=== PATIENT | female | born 1975 | race Caucasian/White ===

== ENCOUNTER 2022-08-11 15:40 | Emergency (ER) | payer BC, SELFPAY ==
[2022-08-11] VITALS (8 sets, daily range): BP systolic 93–130; BP diastolic 56–70; PULSE 57–78; RESP 16–100; TEMP 36.4; O2SAT 100
--- NOTE | ~2022-08-11 | CT_ITS ---
EXAMINATION: CT brain wo con DATE: 08/11/2022 16:49 INDICATION: Headache TECHNIQUE: Computed tomography (CT) of the head was performed without intravenous contrast. Sagittal and coronal reconstructions were performed. The mA was adjusted according to patient size. Iterative reconstruction technique was employed. The dose-length product was 605.33 mGy-cm. COMPARISON: None FINDINGS: No acute intracranial hemorrhage, acute infarction or abnormal extra axial fluid collection. Ventricl es are normal and symmetric. No mass/mass effect. Mucosal thickening in the right sphenoid and pastry mixer ior left ethmoid sinus with additional posterior layering fluid in the right sphenoid sinus suggestin g acute sinusitis. The orbits and mastoid air cells are normal. IMPRESSION: 1. Normal brain. No acute intracranial process. 2. Mucosal thickening and layering fluid in the right sphenoid sinus. Correlate clinically for acute sinusitis. Reviewed, dictated and finalized at location A.
--- NOTE | 2022-08-11 16:00 | ED.GENADULT ---
HPI - General Adult General Chief complaint: Headache Stated complaint: headache Time Seen by Provider: 08/11/22 15:57 History of Present Illness HPI narrative: 47-year-old female presents for evaluation of headache x3 days. Patient states that 3 days ago she woke up with a headache. Headache is described as constant and throbbing and all over her head. No meningismus, focal symptoms, fever, trauma. Related Data Allergies Allergy/AdvReac Type Severity Reaction Status Date / Time tetracycline Allergy Severe VOMITING Verified 08/11/22 16:01 hydrocodone Allergy Unknown NAUSEA Verified 08/11/22 16:01 Sulfa (Sulfonamide Allergy Unknown Unknown Verified 08/11/22 16:01 Antibiotics) clindamycin Allergy Confusion Verified 08/11/22 16:01 doxycycline AdvReac Unknown VOMITING Verified 08/11/22 16:01 Review of Systems Review of Systems: CONSTITUTIONAL: Denies fever, chills, or sweats. EYES: Denies visual changes, redness, or discharge. ENT: Denies rhinorrhea, congestion, sore throat, or otalgia. CARDIOVASCULAR: Denies chest pain, palpitations, or edema. RESPIRATORY: Denies cough or dyspnea. GASTROINTESTINAL: Denies abdominal pain, nausea, vomiting, or diarrhea. GENITOURINARY: Denies dysuria or hematuria. SKIN: Denies rash or itching. MUSCULOSKELETAL: Denies back pain, joint pain, or myalgia. NEUROLOGIC: Denies headache, numbness, or weakness. PSYCHIATRIC: Denies anxiety or depression. Exam Narrative: GENERAL: Well-appearing, well-nourished, and in no acute distress. HEAD: Normocephalic, atraumatic. EYES: PERRLA and EOMI. ENT: Nares clear, no rhinorrhea or epistaxis. Mucous membranes moist. NECK: Supple. CHEST: Clear to auscultation. No respiratory distress. HEART: Regular rate and rhythm. No murmur heard. Normal peripheral pulses. ABDOMEN: Soft, nontender, nondistended, normal active bowel sounds. EXTREMITIES: Normal range of motion. No edema. SKIN: Warm, dry, no rash. NEURO: No focal deficits. Alert and oriented x3. PSYCH: Normal mood and affect. Course Vital Signs Vital signs: Vital Signs Temperature 97.6 F 08/11/22 15:51 Pulse Rate 78 08/11/22 15:51 Respiratory Rate 100 H 08/11/22 15:51 Blood Pressure 130/70 08/11/22 15:51 Pulse Oximetry 100 08/11/22 15:51 Oxygen Delivery Room Air 08/11/22 15:51 Temperature 97.6 F 08/11/22 15:51 Pulse Rate 78 08/11/22 15:51 Respiratory Rate 100 H 08/11/22 15:51 Blood Pressure 130/70 08/11/22 15:51 Pulse Oximetry 100 08/11/22 15:51 Oxygen Delivery Room Air 08/11/22 15:51 Medical Decision Making MDM Narrative Medical decision making narrative: CT as noted. Patient states no prior sinus pain, allergies, congestion. Do not feel she warrants treatment for sinusitis. Headache is completely resolved after Reglan, Benadryl, IV fluids. She is requesting discharge home. Vital Signs Vital Signs: Vital Signs Temperature 97.6 F 08/11/22 15:51 Pulse Rate 78 08/11/22 15:51 Respiratory Rate 100 H 08/11/22 15:51 Blood Pressure 130/70 08/11/22 15:51 Pulse Oximetry 100 08/11/22 15:51 Oxygen Delivery Room Air 08/11/22 15:51 Temperature 97.6 F 08/11/22 15:51 Pulse Rate 78 08/11/22 15:51 Respiratory Rate 100 H 08/11/22 15:51 Blood Pressure 130/70 08/11/22 15:51 Pulse Oximetry 100 08/11/22 15:51 Oxygen Delivery Room Air 08/11/22 15:51 Discharge Plan Discharge Clinical Impression: Headache, Tension headache Patient Disposition: Home, Self-Care Condition: Stable Instructions: Antibiotic Form Additional Instructions: Please follow-up with your primary care doctor. Return to the ER if your symptoms worsen or if you have any concerns about your health. Follow-up/Referrals: Deuce,MD Jackson ([place]) [Primary Care Provider] - Time of Disposition: 18:01
[2022-08-11] MEDS: diphenhydrAMINE HCl INJ 50 MG/ML VIAL 25 MG IV PUSH (16:28)
[2022-08-11] MEDS: METOCLOPRAMIDE HCL INJ 10 MG/2 ML VIAL IV PUSH (16:28)
[2022-08-11] MEDS: SODIUM CHLORIDE 0.9% IV 1,000 ML 999 ML IV CONT (16:28)
== END 2022-08-11 18:10 | disposition home or self-care (01) ==
PROVIDERS: Emergency Provider Emergency Medicine; PCP Internal Medicine
DX: G44.209 Tension-type headache, unspecified, not intractable (principal)
CPT/HCPCS: 70450; 96361; 96374; 96375; 99284; J1200; J2765; J7030

== ENCOUNTER 2022-08-28 17:35 | Emergency (ER) | payer BC, SELFPAY ==
--- NOTE | ~2022-08-28 | XR_ITS ---
EXAM: XR ankle LT min 3V, XR foot LT min 3V DATE: 08/28/2022 18:05 HISTORY: ROLLED ANKLE DOWN A STEP, PAIN ANT ANKLE, DORS PROX FOOT . COMPARISON: None available. FINDINGS: Normal mineralization. No fracture or dislocation. No lytic or blastic lesion. Mild degene rative change at the first MTP joint. Mild hallux valgus. Plantar enthesopathy. No erosion or periost eal change. Soft tissues within normal limits. IMPRESSION: No acute osseous finding in the left foot or ankle. Reviewed, dictated and finalized at location K. IMPRESSION: No acute osseous finding in the left foot or ankle.
[2022-08-28 17:46] VITALS: BP 121/57; PULSE 89; RESP 18; TEMP 36.7; O2SAT 100
--- NOTE | 2022-08-28 18:11 | ED.LOWEXIN ---
HPI - Extremity Injury (Lower) General Chief Complaint: Extremity Injury, Lower Stated Complaint: fell down steps, left ankle pain Time Seen by Provider: 08/28/22 18:05 History of Present Illness HPI Narrative: 47-year-old female reports for evaluation of left foot and ankle pain x5 hours. Patient states she was walking outside when she accidentally everted her ankle on a step. Reports since then she has been having pain to the proximal aspect of the third through fifth metatarsals with overlying edema. She reports she has been able to ambulate but with difficulty. She has been icing her foot and ankle. She is not taking anything for pain. Denies paresthesias, fever, other lower extremity pain or injury. Related Data Allergies Allergy/AdvReac Type Severity Reaction Status Date / Time tetracycline Allergy Severe VOMITING Verified 08/11/22 16:01 hydrocodone Allergy Unknown NAUSEA Verified 08/11/22 16:01 Sulfa (Sulfonamide Allergy Unknown Unknown Verified 08/11/22 16:01 Antibiotics) clindamycin Allergy Confusion Verified 08/11/22 16:01 doxycycline AdvReac Unknown VOMITING Verified 08/11/22 16:01 Review of Systems Review of Systems: CONSTITUTIONAL: Denies fever, chills EYES: Denies visual changes, redness, or discharge. ENT: Denies rhinorrhea, congestion, sore throat, or otalgia. CARDIOVASCULAR: Denies chest pain, palpitations, or edema. RESPIRATORY: Denies cough or dyspnea. GASTROINTESTINAL: Denies abdominal pain, nausea, vomiting, or diarrhea. GENITOURINARY: Denies dysuria or hematuria. SKIN: Denies rash or itching. MUSCULOSKELETAL: See HPI NEUROLOGIC: Denies headache, numbness, dizziness, or weakness. PSYCHIATRIC: Denies anxiety or depression. Exam Narrative: GENERAL: Well-appearing, in no acute distress. HEAD: Normocephalic EYES: PERRLA ENT: Nares clear. Mucous membranes moist. Oropharynx without tonsillar hypertrophy exudate or other lesions. NECK: Supple. CHEST: No respiratory distress. Clear to auscultation, no adventitious breath sounds. HEART: Regular rate and rhythm. No murmur heard. Normal peripheral pulses. ABDOMEN: Soft, nontender, normal active bowel sounds. EXTREMITIES: LLE: Tenderness with overlying edema to the proximal aspect of the third through fifth metatarsals. No tenderness to remainder of ankle, foot or lower extremities. Negative Grijalva's. Patient able to wiggle toes. Limited range of motion of ankle. No overlying skin changes. DP pulse 2+. Sensation intact. SKIN: Warm, dry, no rash. NEURO: No focal deficits. Alert and oriented x3. PSYCH: Normal mood and affect. 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 Vitals stable. Exam reveals tenderness and edema overlying the proximal 3rd-5th metatarsals. She is neurovascularly intact. XR of ankle and foot w/o fracture or dislocation. Imaging discussed with the patient. She received Tylenol, ibuprofen, anton wrap and crutches in the ED. Encouraged Tylenol, ibuprofen, RICE, PCP f/u in 1 week. Strict ED return precautions discussed. She is agreebale to the plan and verbalized understanding. D/C in stable condition. Discharge Plan Discharge Clinical Impression: Foot sprain Patient Disposition: Home, Self-Care Condition: Stable Instructions: Antibiotic Form, Foot Sprain (ED) Addition
[2022-08-28] MEDS: ACETAMINOPHEN 500 MG TABLET 1000 MG PO (18:27)
[2022-08-28] MEDS: IBUPROFEN 600 MG TABLET PO (18:27)
[2022-08-28 18:41] VITALS: BP 132/78; PULSE 78; RESP 16; TEMP 36.8; O2SAT 100
== END 2022-08-28 18:42 | disposition home or self-care (01) ==
LOC: ANHED 18:17
PROVIDERS: Emergency Provider Physician Assistant; PCP Internal Medicine
DX: S93.602A Unspecified sprain of left foot, initial encounter (principal); X50.9XXA Other and unspecified overexertion or strenuous movements or postures, initial encounter
CPT/HCPCS: 73610; 73630; 99283; A9270

== ENCOUNTER 2023-03-27 13:17 | Outpatient (CLI) | payer BC, SELFPAY ==
--- NOTE | 2023-03-27 14:30 | NEURO_ITS ---
Impression: # Non-diabetic complains of nocturnal paresthesia. # Bilateral Carpal Tunnel Syndrome, right more than left. # No ulnar neuropathy. # Normal needle/EMG. Nerve Conduction Studies Anti Sensory Summary Table Stim Site NR Peak (ms) P-T Amp (?V) Site1 Site2 Delta-P (ms) Dist (cm) Sean (m/s) Left Median Anti Sensory (2-3nd Digit) Wrist 3.2 45.1 Wrist 2-3nd Digit 3.2 14.0 44 Wrist 3.3 45.3 Wrist 2-3nd Digit 3.2 14.0 44 Right Median Anti Sensory (2-3nd Digit) Wrist 4.2 6.4 Wrist 2-3nd Digit 4.2 14.0 33 Wrist 5.0 28.1 Wrist 2-3nd Digit 4.2 14.0 33 Left Radial Anti Sensory (Base 1st Digit) Wrist 2.0 30.9 Wrist Base 1st Digit 2.0 0.0 Right Radial Anti Sensory (Base 1st Digit) Wrist 2.2 27.3 Wrist Base 1st Digit 2.2 0.0 Left Ulnar Anti Sensory (5th Digit) Wrist 2.5 87.0 Wrist 5th Digit 2.5 14.0 56 Right Ulnar Anti Sensory (5th Digit) Wrist 2.4 40.0 Wrist 5th Digit 2.4 14.0 58 Motor Summary Table Stim Site NR Onset (ms) O-P Amp (mV) Site1 Site2 Delta-0 (ms) Dist (cm) Sean (m/s) Left Median Motor (Abd Poll Brev) Wrist 3.4 5.1 Elbow Wrist 4.4 26.0 59 Elbow 7.8 8.1 Right Median Motor (Abd Poll Brev) Wrist 3.4 3.8 Elbow Wrist 4.8 28.0 58 Elbow 8.2 3.8 ELB/ADM Wrist 0.1 0.0 Left Ulnar Motor (Abd Dig Minimi) Wrist 2.1 7.2 A Elbow Wrist 4.7 28.0 60 A Elbow 6.8 6.6 Right Ulnar Motor (Abd Dig Minimi) Wrist 2.3 4.8 A Elbow Wrist 4.7 29.0 62 A Elbow 7.0 3.6 B Elbow Wrist 0.7 0.0 F Wave Studies NR F-Lat (ms) L-R F-Lat (ms) Left Median (Mrkrs) (Abd Poll Brev) 26.25 1.27 Right Median (Mrkrs) (Abd Poll Brev) 27.52 1.27 Left Ulnar (Mrkrs) (Abd Dig Min) 26.33 0.14 Right Ulnar (Mrkrs) (Abd Dig Min) 26.19 0.14 EMG Side Muscle Nerve Root Ins Act Fibs Amp Dur Recrt Comment Right 1stDorInt Ulnar C8-T1 Nml Nml Nml Nml Nml Right Ext Indicis Radial (Post Int) C7-8 Nml Nml Nml Nml Nml Right Ext Digitorum Radial (Post Int) C7-8 Nml Nml Nml Nml Nml Right BrachioRad Radial C5-6 Nml Nml Nml Nml Nml Right PronatorTeres Median C6-7 Nml Nml Nml Nml Nml Right Abd Poll Brev Median C8-T1 Nml Nml Nml Nml Nml Left 1stDorInt Ulnar C8-T1 Nml Nml Nml Nml Nml Left Ext Indicis Radial (Post Int) C7-8 Nml Nml Nml Nml Nml Left Ext Digitorum Radial (Post Int) C7-8 Nml Nml Nml Nml Nml Left BrachioRad Radial C5-6 Nml Nml Nml Nml Nml Left PronatorTeres Median C6-7 Nml Nml Nml Nml Nml Left Abd Poll Brev Median C8-T1 Nml Nml Nml Nml Nml MTDD
== END 2023-03-27 13:18 | disposition home or self-care (01) ==
LOC: ANHNEURO 13:17
PROVIDERS: PCP Internal Medicine; Visit Provider Physician Assistant Surgical
DX: G56.03 Carpal tunnel syndrome, bilateral upper limbs (principal)
CPT/HCPCS: 95886; 95911

== ENCOUNTER 2023-05-20 00:19 | Day surgery (SDC) | payer BC, SELFPAY ==
[2023-05-10 14:47] VITALS: BMI 21.4
--- NOTE | 2023-05-10 14:51 | PC.NURSE ---
Report to the Outpatient Waiting Room, entrance under the green pavilion located off [facility], at time 0600 on date 05/20/23. Planned Procedure Time: 0730. Time changes happen often and if your time is changed the preop area will call you the afternoon before. - You and your visitor will be asked to self-screen and do not enter if you have any COVID symptoms. - A mask is optional within the hospital at this time. Patients may have clear liquids (water, carbonated beverages, clear teas, apple juice) until 3 hours prior to surgery with a maximum of 20 ounces. - No food from midnight until time of surgery Take the following medications with a SIP of water the morning of surgery: NONE DO NOT STOP ANY OF YOUR OTHER PRESCRIPTION MEDICATIONS PRIOR TO SURGERY ?EXCEPT THE FOLLOWING Medications to discontinue per physician: IBUPROFEN Date to take last dose: 05/12/23 Please no make-up, nail cuban, hairspray, perfume, deodorant, or body powder the day of surgery. No jewelry (including any body piercings) or valuables the day of surgery, leave them at home. Please take a shower or bath the night before, or the morning of, surgery with an antibacterial soap. Wear comfortable, loose fitting clothing. - Jewelry must be removed prior to entering the operating room. Rings and piercings that are not removed may be cut off. - The hospital will not accept responsibility for valuables. - Please leave all valuables, including medications, at home the day of surgery. If you are going home after surgery, a licensed otr driver must drive you home. - NO public transportation without another adult if you receive anesthesia. - We recommend that an adult stay with you for 24 hours following discharge. - We also recommend that you do not drive, make important decision, drink alcoholic beverages, or take any drugs that were not prescribed by your health care provider for at least 24 hours after your discharge time. Follow any additional instructions given to you from your surgeon. If you or anyone in your household have experienced Covid symptoms in the past week, please notify your surgeon or the nurse liaison at the phone number below for possible testing. Telephone instructions given to PT - POLO MERIDA and asked if any additional questions and then verbalized understanding. Patient advised to call surgeon office or pre surgery nurse liaison [phone] if any additional questions.
--- NOTE | 2023-05-17 08:37 | P.HP_ITS ---
H&P: HPI History of Present Illness Date/Time: 05/17/23 08:37 Chief Complaint: Right carpal tunnel syndrome Narrative: 48-year-old female who presents today for a right carpal tunnel release. She has been having since of constant numbness in the thumb through ring finger the right hand. She had an EMG study done in February of last year which showed bilateral carpal tunnel syndrome right greater than left. She has tried anti- inflammatories as well as night splints. She does not feel that night splints have helped. She continues to wake at night with numbness in the hand. She is also getting numbness throughout the day while she is working. She feels this point she is ready to proceed with surgery. Review of Systems Review of Systems: All systems reviewed & are unremarkable except as noted in HPI and below [facility] Social History Social History Smoking packs per day: 0.5 Smoking cigarettes per day: 10.0 Years smoked: 20 Smoking pack-years: 10.00 Smoking status: Current every day smoker Tobacco type: cigarettes Alcohol intake: current Alcohol use details: RARE Substance use: current Substance use type: marijuana Living arrangements: with family Spiritual care concerns: No Meds Home Medications and Allergies Home Medications Medication Instructions Recorded Confirmed Type ibuprofen 600 mg tablet 600 mg PO QID PRN Pain 05/10/23 05/10/23 History Allergies Allergy/AdvReac Type Severity Reaction Status Date / Time tetracycline Allergy Severe VOMITING Verified 05/10/23 14:46 hydrocodone Allergy Unknown NAUSEA Verified 05/10/23 14:46 Sulfa (Sulfonamide Allergy Unknown Unknown Verified 05/10/23 14:46 Antibiotics) clindamycin Allergy Confusion Verified 05/10/23 14:46 doxycycline AdvReac Unknown VOMITING Verified 05/10/23 14:46 Exam Narrative: 48-year-old female alert pleasant. She has full range of motion of the wrist and fingers. 2+ radial pulse. Neck range of motion is full without discomfort negative Spurling's maneuver. She has a positive Tinel's over the median nerve. She has normal 2 point discrimination in all fingers. She has positive carpal tunnel compression test. Negative Tinel's over the cubital tunnel. Resp: Auscultation: clear to auscultation bilaterally Cardio: Rate: regular rate Rhythm: regular rhythm Assessment and Plan Assessment and plan (1) Right carpal tunnel syndrome: Code(s): G56.01 - Carpal tunnel syndrome, right upper limb Status: Acute Plan 48-year-old female who has right carpal tunnel syndrome. She has not had improvement of her symptoms with nonsurgical treatment and feels this point she is ready to proceed with surgery. Surgical procedure as well as the risks and complications were discussed in detail all questions were answered and we will proceed. Patient will avoid any anti-inflammatories or aspirin products 1 week prior to surgery
[2023-05-20] MEDS: LACTATED RINGERS 1,000 ML 30 ML IV CONT (06:35)
[2023-05-20] MEDS: ACETAMINOPHEN 500 MG TABLET 1000 MG PO (06:35)
[2023-05-20 06:38] VITALS: BP 111/48; PULSE 73; RESP 16; TEMP 36.4; O2SAT 100
--- NOTE | 2023-05-20 06:50 | WPDANESEPPF ---
Anes - Initial Pre Proc Eval Procedure: Operation Date: 05/20/23 07:30 Proposed Procedures p Right Carpal Tunnel Release - Chung Sim MD Date/Time: 05/20/23 06:50 Surgeon: Chung Sim MD Pre Op Diagnosis: right carpal tunnel syndrome Patient Data Age: 48 Gender: F Height: 1.63 m Weight: 57.7 kg Last Vital Signs Temp 36.4 C L 05/20/23 06:38 Pulse 73 05/20/23 06:38 Resp 16 05/20/23 06:38 BP 111/48 L 05/20/23 06:38 Pulse Ox 100 05/20/23 06:38 O2 Del Method Room Air 05/20/23 06:38 Allergies Allergy/AdvReac Type Severity Reaction Status Date / Time tetracycline Allergy Severe VOMITING Verified 05/20/23 06:20 hydrocodone Allergy Unknown NAUSEA Verified 05/20/23 06:20 Sulfa (Sulfonamide Allergy Unknown Rash Verified 05/20/23 06:20 Antibiotics) clindamycin Allergy Confusion Verified 05/20/23 06:20 doxycycline AdvReac Unknown VOMITING Verified 05/20/23 06:20 Home Medications Medication Instructions Recorded Confirmed Type ibuprofen 600 mg tablet 600 mg PO QID PRN Pain 05/10/23 05/20/23 History Patient hx anesthesia problems: none Family hx anesthesia problems: none Results Review: All pre-operative results and documents have been reviewed as part of the pre-operative evaluation. FORMERLY [facility], [facility] Social History Social History (Updated 05/20/23 @ 06:53 by Omega Tineo DO) Smoking packs per day: 0.5 Smoking cigarettes per day: 10.0 Years smoked: 25 Smoking pack-years: 12.50 Smoking status: Current every day smoker Tobacco type: cigarettes Alcohol intake: current Alcohol use details: RARE Substance use: current Substance use type: marijuana Other substance usage details: daily Living arrangements: with family Spiritual care concerns: No Anes - Eval Final PreProcedure Day of Procedure 05/20/23 06:50 Patient weight: normal Heart: regular rate and rhythm Lungs: clear to auscultation Airway: Mallampati scale class 1 Neurological: alert and oriented Last oral intake: >/= 8 hours ASA classification: III Emergent: no Anesthetic plan: proceed Anesthesia type and monitoring: general LMA and standard monitoring Results Review: All pre-operative results and documents have been reviewed as part of the pre-operative evaluation. Informed Consent: The patient's anesthetic plan and its attendant risks and benefits were discussed with the patient/family/POA. Questions were solicited and answers provided to the satisfaction of the patient/family/POA.
[2023-05-20] MEDS: KETOROLAC 15 MG/ML VIAL (*BKC) IV PUSH (07:13)
--- NOTE | 2023-05-20 07:15 | WPDHPUPDATE1 ---
History and Physical Update Update Date/Time: 05/20/23 07:15 History and Physical has been reviewed, including an updated exam of the patient. There are NO changes in the patient's condition. Risks, benefits, and alternatives have been discussed and questions answered. Patient agrees to proceed with procedure.
[2023-05-20] MEDS: ceFAZolin 2 GM/D5W 50 ML 2 GM/50 ML BAG IVPB (07:21)
[2023-05-20] MEDS: LIDO 1%/EPINEPHRINE 1:100,000 50 ML VIAL INFILTRATE (07:51)
[2023-05-20 08:04] VITALS: BP 93/58; PULSE 66; RESP 12; O2SAT 100
--- NOTE | 2023-05-20 08:14 | W.PM.PROC2 ---
Procedure Note - Detailed Date of Procedure 05/20/23 Pre-op Diagnosis right carpal tunnel syndrome Post-op Diagnosis Same Procedure Performed Right carpal tunnel release Surgeon Chung Sim MD Anesthesia General Description of Procedure Patient was brought to the operating room and intravenous general anesthesia was administered and the right arm prepped draped usual fashion. She received 2 g of Ancef preoperatively. Limb was exsanguinated and tourniquet elevated to 200 mmHg. Local anesthesia was administered 1% lidocaine with epinephrine. A 2 cm longitudinal incision was made at the base of the palm in line with the 4th ray radial border. Dissection care was carried down through the superficial palmar fascia the transverse carpal ligament which was longitudinally incised. Complete release was achieved distally. Proximally a [place] elevator was passed underneath the fascia from the underlying nerve the subcutaneous fat elevated off the distal volar forearm fascia and the fascia was split for a distance of 3 cm proximal to flexor crease of the wrist completing the decompression. Tourniquet released wound irrigated hemostasis was achieved and wound closed with 5 0 nylon suture in a soft bulky dressing applied.
[2023-05-20 08:30] VITALS: BP 90/58; PULSE 52; RESP 20
[2023-05-20 09:00] VITALS: BP 98/52; PULSE 58; RESP 20
== END 2023-05-20 09:05 | disposition home or self-care (01) ==
PROVIDERS: PCP Internal Medicine; Visit Provider Orthopaedic Surgery
PROC: (CPT 64721; principal; 2023-05-20 07:30)
DX: G56.01 Carpal tunnel syndrome, right upper limb (principal); F17.210 Nicotine dependence, cigarettes, uncomplicated; F12.90 Cannabis use, unspecified, uncomplicated; Z79.1 Long term (current) use of non-steroidal anti-inflammatories (NSAID)
CPT/HCPCS: 64721; A9270; J0690; J1885; J2250; J2704; J3010; J7120

== ENCOUNTER 2023-06-19 14:12 | Outpatient (CLI) | payer BC, SELFPAY ==
[2023-06-19 14:43] LABS: Appearance Urine Clear (Clear); Bacteria Urine None Seen /hpf; Bilirubin Urine Negative (Negative); Blood Urine 1+ (Negative); Color Urine Yellow (Yellow); Glucose Urine UA Negative (Negative); Ketones Urine Negative (Negative); Leukocyte Esterase Ur Negative LEU/UL (Negative); Nitrate Urine Negative (Negative); Non Pathogenic Casts 0-2; Protein Urine Negative (Negative); Specific Grav Ur 1.011 (1.001-1.035); Squamous Epithelial Cell Urine None Seen /hpf (Few); Urobilinogen Urine 0.2 mg/dL (<2.0); WBC Urine 0-5 /hpf (0-3)
[2023-06-19 14:50] LABS: Prothrombin Time 13.9 Seconds (11.1-14.7)
[2023-06-19 14:51] LABS: Partial Thromboplastin Time 38.8 Seconds (22.3-36.8)
[2023-06-19 15:13] LABS: Add Urine Microscopic? YES
== END 2023-06-19 14:13 | disposition home or self-care (01) ==
LOC: ANHSURGERY 14:16
PROVIDERS: PCP Internal Medicine; Visit Provider Urology
DX: Z01.818 Encounter for other preprocedural examination (principal); N20.0 Calculus of kidney
CPT/HCPCS: 36415; 81001; 85610; 85730

== ENCOUNTER 2023-06-21 01:07 | Day surgery (SDC) | payer BC, SELFPAY ==
[2023-06-18 15:50] VITALS: BMI 21.8
--- NOTE | 2023-06-18 15:51 | PC.NURSE ---
Report to the Outpatient Waiting Room, entrance under the green pavilion located off [facility], at time 12:00 on date 06/21/23. Planned Procedure Time: 2:00. Time changes happen often and if your time is changed the preop area will call you the afternoon before. - You and your visitor will be asked to self-screen and do not enter if you have any COVID symptoms. - A mask is optional within the hospital at this time. Patients may have clear liquids (water, carbonated beverages, clear teas, apple juice) until 3 hours prior to surgery (11:00) with a maximum of 20 ounces. - No food from midnight until time of surgery Take the following medications with a SIP of water the morning of surgery: N/A DO NOT STOP ANY OF YOUR OTHER PRESCRIPTION MEDICATIONS PRIOR TO SURGERY ?EXCEPT THE FOLLOWING Medications to discontinue per physician: N/A Date to take last dose: N/A Please no make-up, nail equatorial guinean, hairspray, perfume, deodorant, or body powder the day of surgery. No jewelry (including any body piercings) or valuables the day of surgery, leave them at home. Please take a shower or bath the night before, or the morning of, surgery with an antibacterial soap. Wear comfortable, loose fitting clothing. - Jewelry must be removed prior to entering the operating room. Rings and piercings that are not removed may be cut off. - The hospital will not accept responsibility for valuables. - Please leave all valuables, including medications, at home the day of surgery. If you are going home after surgery, a licensed local owner operator truck driver must drive you home. - NO public transportation without another adult if you receive anesthesia. - We recommend that an adult stay with you for 24 hours following discharge. - We also recommend that you do not drive, make important decision, drink alcoholic beverages, or take any drugs that were not prescribed by your health care provider for at least 24 hours after your discharge time. Follow any additional instructions given to you from your surgeon. If you or anyone in your household have experienced Covid symptoms in the past week, please notify your surgeon or the nurse liaison at the phone number below for possible testing. Telephone instructions given to ROBSON CUELLAR and asked if any additional questions and then verbalized understanding. Patient advised to call surgeon office or pre surgery nurse liaison [phone] if any additional questions.
[2023-06-21] VITALS (8 sets, daily range): BP systolic 95–116; BP diastolic 42–68; PULSE 53–90; RESP 16; TEMP 36.5–37.4; O2SAT 100
--- NOTE | ~2023-06-21 | XR_ITS ---
EXAMINATION: XR abdomen/kub 1V DATE: 06/21/2023 11:59 INDICATION: Nephrolithiasis for planned shockwave lithotripsy TECHNIQUE: A supine view of the abdomen on 2 radiographs was obtained. COMPARISON: None. FINDINGS: 9 mm ovoid stone projecting over the lower pole of the left kidney. Ovoid calcification in the right hemipelvis which appears more lateral than the course of ureter most likely representing a phlebolith . Nonspecific square shaped density projecting over the left hemipelvis suggestive of a foreign body either external to the patient or in the fecal stream versus an irregular shaped calcification. No di lated bowel to suggest obstruction. Bone island at the intratrochanteric right femur. Lung bases are clear. Heart size is normal. IMPRESSION: 1. 1 mm stone at the lower pole of the left kidney. 2. Indeterminate square-shaped density in the left hemipelvis which could represent a foreign body ei ther external to the patient written the fecal stream or irregular shaped calcification. Reviewed, dictated and finalized at location A. IMPRESSION: 1. 1 mm stone at the lower pole of the left kidney. 2. Indeterminate square-shaped density in the left hemipelvis which could repre sent a foreign body either external to the patient written the fecal stream or irregular shaped calcification.
--- NOTE | 2023-06-21 06:10 | WPDHPUPDATE1 ---
History and Physical Update Update Date/Time: 06/21/23 06:10 History and Physical has been reviewed, including an updated exam of the patient. There are NO changes in the patient's condition. Risks, benefits, and alternatives have been discussed and questions answered. Patient agrees to proceed with procedure.
--- NOTE | 2023-06-21 12:12 | WPDANESEPPF ---
Anes - Initial Pre Proc Eval Procedure: Operation Date: 06/21/23 14:00 Proposed Procedures p Left Extracorporeal Shock Wave Lithotripsy, - Norm Dunlap MD s Cystoscopy - Norm Dunlap MD Date/Time: 06/21/23 12:12 Surgeon: Norm Dunlap MD Pre Op Diagnosis: left kidney stone Patient Data Age: 48 Gender: F Height: 1.63 m Weight: 57.7 kg Allergies Allergy/AdvReac Type Severity Reaction Status Date / Time Sulfa (Sulfonamide Allergy Unknown Rash Verified 06/21/23 12:10 Antibiotics) tetracycline AdvReac Severe VOMITING Verified 06/21/23 12:10 doxycycline AdvReac Unknown VOMITING Verified 06/21/23 12:10 hydrocodone AdvReac Unknown NAUSEA Verified 06/21/23 12:10 clindamycin AdvReac Confusion Verified 06/21/23 12:10 Home Medications Medication Instructions Recorded Confirmed Type No Home Medications 06/18/23 06/21/23 History Patient hx anesthesia problems: none Family hx anesthesia problems: none Results Review: All pre-operative results and documents have been reviewed as part of the pre-operative evaluation. [facility] Social History Social History (Updated 05/20/23 @ 06:53 by Omega Tineo DO) Smoking packs per day: 0.5 Smoking cigarettes per day: 10.0 Years smoked: 25 Smoking pack-years: 12.50 Smoking status: Current every day smoker Tobacco type: cigarettes Alcohol intake: current Alcohol use details: RARE Substance use: current Substance use type: marijuana Other substance usage details: daily Living arrangements: with family Spiritual care concerns: No Anes - Eval Final PreProcedure Day of Procedure 06/21/23 12:12 Patient weight: normal Heart: regular rate and rhythm Lungs: clear to auscultation Airway: Mallampati scale class II Neurological: alert and oriented Last oral intake: >/= 8 hours ASA classification: II Emergent: no Anesthetic plan: proceed Anesthesia type and monitoring: general and standard monitoring Other findings: Smoker, 1/2 ppd, smoked at 11am today. Results Review: All pre-operative results and documents have been reviewed as part of the pre-operative evaluation. Informed Consent: The patient's anesthetic plan and its attendant risks and benefits were discussed with the patient/family/POA. Questions were solicited and answers provided to the satisfaction of the patient/family/POA.
[2023-06-21] MEDS: LACTATED RINGERS 1,000 ML 30 ML IV CONT ×2 (12:30→14:27)
[2023-06-21 12:48] LABS: Partial Thromboplastin Time 36.9 Seconds (22.3-36.8)
[2023-06-21] MEDS: ceFAZolin 2 GM/D5W 50 ML 2 GM/50 ML BAG IVPB (13:02)
--- NOTE | 2023-06-21 13:19 | W.PM.PROC2 ---
Procedure Note - Detailed Date of Procedure 06/21/23 Pre-op Diagnosis Left kidney stone Post-op Diagnosis Same Procedure Performed Left ESWL Surgeon Norm Dunlap MD Anesthesia General Description of Procedure The patient was brought to the operative suite where she was placed in the supine position on the Dornier lithotripsy table. While in a brief frogleg position we performed flexible cystoscopy with a 16 F flexible cystoscope. The bladder neck and urethra endoscopically normal. Bladder mucosa was normal without hyperemia. There was no intravesical foreign neoplasm. She had a single orthotopic ureteral orifices with clear efflux bilaterally. The focal point of the lithotripter was then placed at a 9mm left renal calculus. A total of 2500 shocks were delivered at a power setting of 4. There appeared to be good fragmentation of the stone. The patient tolerated the procedure well and was taken to the recovery room in good condition. Drains No Packing No Pathology None sent Complications No immediate complications Condition Stable Disposition PACU
[2023-06-21] MEDS: traMADol HCL (*CRX) 50 MG TABLET PO (15:09)
== END 2023-06-21 15:50 | disposition home or self-care (01) ==
PROVIDERS: PCP Internal Medicine; Visit Provider Urology
PROC: (CPT 50590; principal; 2023-06-21 14:00)
PROC: 0TJB8ZZ Inspection of Bladder, Via Natural or Artificial Opening Endoscopic (ICD-10-PCS; CPT 52000; 2023-06-21 14:00)
DX: N20.0 Calculus of kidney (principal); F17.210 Nicotine dependence, cigarettes, uncomplicated; F12.90 Cannabis use, unspecified, uncomplicated
CPT/HCPCS: 50590; 36415; 74018; 85730; A9270; J0690; J2250; J7120

== ENCOUNTER 2023-07-05 14:29 | Outpatient (CLI) | payer BC, SELFPAY ==
--- NOTE | ~2023-07-05 | XR_ITS ---
EXAMINATION: XR abdomen/kub 1V DATE: 07/05/2023 14:43 INDICATION: Calculus of kidney. TECHNIQUE: A supine view of the abdomen on 2 radiographs was obtained. COMPARISON: Abdomen radiographs 06/21/23 FINDINGS: There are no dilated loops of bowel. There is a 5 mm stone in left kidney. IMPRESSION: 1. 5 mm stone in left kidney. Reviewed, dictated and finalized at location E.
== END 2023-07-05 14:30 ==
LOC: MICIMG 14:30
PROVIDERS: PCP Urology; Visit Provider Urology
DX: N20.0 Calculus of kidney (principal)
CPT/HCPCS: 74018

== ENCOUNTER 2023-09-29 13:41 | Emergency (ER) | payer BC, SELFPAY ==
--- NOTE | ~2023-09-29 | XR_ITS ---
Left Shoulder Technique: AP and scapular Y views were obtained. Clinical History: Pain Findings: No fracture or dislocation is seen. Osseous alignment is anatomic. The glenohumeral and acr omioclavicular joint spaces are preserved. Soft tissues are unremarkable. Impression: Unremarkable left shoulder radiographs. Reviewed, dictated and finalized at [facility]. Impression: Unremarkable left shoulder radiographs.
[2023-09-29 13:45] VITALS: BP 106/54; PULSE 85; RESP 20; TEMP 36.3; O2SAT 97
--- NOTE | 2023-09-29 15:24 | ED.UPPEXIN ---
HPI - Extremity Injury (Upper) General Chief Complaint: Extremity Injury, Upper Stated Complaint: left shoulder Time Seen by Provider: 09/29/23 15:15 History of Present Illness HPI narrative: 48-year-old female presents emergency department for left shoulder pain. Patient states 6 days ago she woke up with her left shoulder hurting. She denies known injury or trauma but does state over the weekend prior she was walking her dog does concern her dog may have pulled the leash to heart. She states her arm hurts worse when it is not moving and better when it is moving. Denies rash or lesions over the area. Denies neck pain. She has been taking 600 mg of ibuprofen without much improvement Related Data Allergies Allergy/AdvReac Type Severity Reaction Status Date / Time Sulfa (Sulfonamide Allergy Unknown Rash Verified 06/21/23 12:10 Antibiotics) tetracycline AdvReac Severe VOMITING Verified 06/21/23 12:10 doxycycline AdvReac Unknown VOMITING Verified 06/21/23 12:10 hydrocodone AdvReac Unknown NAUSEA Verified 06/21/23 12:10 clindamycin AdvReac Confusion Verified 06/21/23 12:10 Review of Systems Review of Systems: All systems reviewed & are unremarkable except as noted in HPI and below PMFSH Social History Social History Smoking packs per day: 0.5 Smoking cigarettes per day: 10.0 Years smoked: 25 Smoking pack-years: 12.50 Smoking status: Current every day smoker Tobacco type: cigarettes Alcohol intake: current Alcohol use details: RARE Substance use: current Substance use type: marijuana Other substance usage details: daily Living arrangements: with family Spiritual care concerns: No Exam Narrative: GENERAL: Well-appearing, well-nourished, and in no acute distress. HEAD: Normocephalic, atraumatic. NECK: Supple. no midline spinous tenderness, step-offs or deformities CHEST: Clear to auscultation. No respiratory distress. HEART: Regular rate and rhythm. No murmur heard. Normal peripheral pulses. EXTREMITIES: LUE: diffuse tenderness to the left trapezius and shoulder. No tenderness remainder of upper extremity. Full passive range of motion. No overlying erythema or warmth. No deformity or effusion. No overlying lesions or rash. Patient able to flex, abduct and internally rotate approximately 75% until she has to stop due to pain. Sensation intact throughout. Radial, medial and ulnar nerves are intact. Radial pulse 2 +. SKIN: Warm, dry, no rash. NEURO: No focal deficits. Alert and oriented x3 Course Vital Signs Vital signs: Vital Signs Temperature 97.3 F L 09/29/23 13:45 Pulse Rate 85 09/29/23 13:45 Respiratory Rate 20 09/29/23 13:45 Blood Pressure 106/54 L 09/29/23 13:45 Pulse Oximetry 97 09/29/23 13:45 Oxygen Delivery Room Air 09/29/23 13:45 Temperature 97.3 F L 09/29/23 13:45 Pulse Rate 85 09/29/23 13:45 Respiratory Rate 20 09/29/23 13:45 Blood Pressure 106/54 L 09/29/23 13:45 Pulse Oximetry 97 09/29/23 13:45 Oxygen Delivery Room Air 09/29/23 13:45 MDM - Extremity Injury (Upper) MDM Narrative Medical decision making narrative: 48-year-old female presents to the emergency department for left shoulder pain for 6 days. Vital stable. Exam is significant for the above. She is neurovascularly intact. Exam is significant for the above. X-rays are unremarkable. Will prescribe muscle relaxers and lidocaine patches and provide orthopedic follow-up. I did offer a sling which she declined politely. Advised her to continue taking Tylenol ibuprofen as needed. strict ED return precautions discussed. She is agreeable with the plan verbalized understanding. Discharged in stable condition. Discharge Plan Discharge Clinical Impression: Left shoulder pain Qualifiers: Chronicity: acute Qualified Code(s): M25.512 - Pain in left shoulder Patient Disposition: Home, Self-Care
== END 2023-09-29 15:57 | disposition home or self-care (01) ==
LOC: ANHED 15:48
PROVIDERS: Emergency Provider Physician Assistant; PCP Internal Medicine
DX: M25.512 Pain in left shoulder (principal); F17.210 Nicotine dependence, cigarettes, uncomplicated
CPT/HCPCS: 73030; 99283

== ENCOUNTER 2024-05-04 07:59 | Emergency (ER) | payer BC, SELFPAY ==
[2024-05-04 08:03] VITALS: BP 99/56; PULSE 94; RESP 16; TEMP 36.8; O2SAT 98
[2024-05-04 08:06] VITALS: O2SAT 98
[2024-05-04 08:21] VITALS: BP 105/64; PULSE 92; RESP 16; O2SAT 98
[2024-05-04] MEDS: LIDOCAINE 2% VISC SOLN 15 ML UDC PO (08:24)
[2024-05-04 09:09] LABS: Influenza A QL RT-PCR Negative (Negative); Influenza B QL RT-PCR Negative (Negative); RSV RNA, RT-PCR Negative (Negative); SARS-CoV-2 RNA PCR Negative (Negative)
--- NOTE | 2024-05-04 09:15 | ED_ITS ---
HPI - General Adult General Chief complaint: Upper Respiratory Infection Stated complaint: URI symptoms Time Seen by Provider: 05/04/24 08:07 History of Present Illness HPI narrative: Patient is a 49-year-old female who presents ER with cold symptoms. Ongoing for 3 days. She has sinus congestion with sore throat and cough. She has lost her voice and it hurts to speak. No chest pain or chest pressure. She has not tried ankle I found a sin. No alleviating factors. has been sick for a couple weeks but is feeling better. Related Data Allergies Allergy/AdvReac Type Severity Reaction Status Date / Time Sulfa (Sulfonamide Allergy Unknown Rash Verified 05/04/24 08:00 Antibiotics) tetracycline AdvReac Severe VOMITING Verified 05/04/24 08:00 doxycycline AdvReac Unknown VOMITING Verified 05/04/24 08:00 hydrocodone AdvReac Unknown NAUSEA Verified 05/04/24 08:00 clindamycin AdvReac Confusion Verified 05/04/24 08:00 Review of Systems Review of Systems: ROS unobtainable: Yes other (Difficult to obtain as patient cannot speak from sore throat.) [facility] Past Medical History Medical History (Updated 05/04/24 @ 09:20 by Kalyan Richmond MD) Right carpal tunnel syndrome Kidney stones Family History Family History Father No problems noted. Mother No problems noted. Sibling No problems noted. Social History Social History Smoking packs per day: 0.5 Smoking cigarettes per day: 10.0 Years smoked: 25 Smoking pack-years: 12.50 Smoking status: Current every day smoker Tobacco type: cigarettes Second hand tobacco smoke exposure: No Alcohol intake: current Alcohol use details: RARE Substance use: current Substance use type: marijuana Other substance usage details: daily Do You Feel Safe in your Home?: Yes Lack of Transportation: No Lack of Food: Never True Current Housing: I Have Housing Concerned About Future Housing: No Difficulty Paying Gas/Electric Bills: No Difficulty Paying for Meds: No Currently Unemployed: No Education: Decline to Answer Difficulty w/ Childcare or Family Care: No Living arrangements: with family 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 HEAD: Normocephalic, atraumatic. ENT: Mucous membranes moist. Normal appearing posterior oropharynx. Tolerating oral secretions. CHEST: Clear to auscultation. No respiratory distress. HEART: Regular rate and rhythm. Normal peripheral pulses. EXTREMITIES: Normal range of motion. No edema. SKIN: Warm, dry, no rash. NEURO: Alert and oriented x3. PSYCH: Normal mood and affect. Course Vital Signs Vital signs: Vital Signs Temperature 98.3 F 05/04/24 08:03 Pulse Rate 94 05/04/24 08:03 Respiratory Rate 16 05/04/24 08:03 Blood Pressure 99/56 L 05/04/24 08:03 Pulse Oximetry 98 05/04/24 08:03 Temperature 98.3 F 05/04/24 08:03 Pulse Rate 92 05/04/24 08:21 Respiratory Rate 16 05/04/24 08:21 Blood Pressure 105/64 05/04/24 08:21 Pulse Oximetry 98 05/04/24 08:21 Oxygen Delivery Room Air 05/04/24 08:06 Medical Decision Making MDM Narrative Medical decision making narrative: Received viscous lidocaine which she did not like. Viral panel negative. Discharge home with supportive care. Discussed sore throat lozenges, guaifenesin [id number], and humidified air. Vital Signs Vital Signs: Vital Signs Temperature 98.3 F 05/04/24 08:03 Pulse Rate 94 05/04/24 08:03 Respiratory Rate 16 05/04/24 08:03 Blood Pressure 99/56 L 05/04/24 08:03 Pulse Oximetry 98 05/04/24 08:03 Temperature 98.3 F 05/04/24 08:03 Pulse Rate 92 05/04/24 08:21 Respiratory Rate 16 05/04/24 08:21 Blood Pressure 105/64 05/04/24 08:21 Pulse Oximetry 98 05/04/24 08:21 Oxygen Delivery Room Air 05/04/24 08:06 Lab Data Labs: Lab Results 05/04/24 Range/Units 08:25 Influenza A (RT-PCR) Negative (Negative) Influenza B (RT-PCR) Negative (Negative) RSV (RT-PCR) Negative (Negative) SARS-CoV-2 RNA (RT-PCR) Negative (Negative) Discharge Plan Discharge Clinical Impression: Acute viral syndrome Patient Disposition: Home, Self-Care Condition: Stable Instructions: Viral Syndrome (ED) Additional Instructions: As discussed you have a viral illness. Unfortunately there are no specific medications we can give you to make the illness end faster. Antibiotics do not work for viral illnesses. However, you can take Acetaminophen or Ibuprofen to help with fevers and pain. Stay well hydrated and rested. Return to the emergency department if your fevers and chills continue to worse after 5 days, if you develop worsening cough with thick sputum, or are unable to stay hydrated. Contact your primary care provider in the next few days for a re-evaluation and to make sure your symptoms are improving. Patient Language: Danish Prescriptions: No Action tramadol 50 mg tablet 50 mg PO Q6H PRN (Reason: pain) Qty: 20 0RF cyclobenzaprine 10 mg tablet 10 mg PO TID PRN (Reason: muscle spasm) Qty: 14 0RF lidocaine 5 % adhesive patch,medicated 1 patch topical DAILY Qty: 15 0RF Rx Instructions: leave on most painful area for up to 12 hrs. do not use more than 1 patch in a 24-hour period. Follow-up/Referrals: Deuce,MD Jackson ([place]) [Primary Care Provider] - 1 Week Stand Alone Forms: Work/School Release IP
[2024-05-04 09:25] VITALS: BP 102/68; PULSE 82; RESP 16; O2SAT 99
--- OUTSIDE RECORDS SUMMARY | 2024-05-04 11:07 | XMS_ITS | Data Portability ---
Author Organization [place] [employer], Main Office Address [address] [place] [address] Care Team Providers Care Branch Account Executive Name Role Phone LENA MORA Primary Care Provider LENA MORA Referring Provider [phone] Assessment Encounter Date Assessment Date Assessment LastModified by Organization Details LastModified Time 02/18/2023 02/18/2023 HPI: 47-year-old female who came in today for evaluation of her right hand numbness. She has been having symptoms on and off for about 9 years. For last 2 months she has had rather severe symptoms of numbness in the hand. Particularly there in the central 2 fingers. She is also getting numbness in the thumb index and 5th finger as well to a lesser degree. She is waking up every night with her hand asleep. She states that she will also get a lot of pain in the forearm as well. She is getting numbness during the day. She feels that she has a constant sense of numbness in the long and ring finger. Patient has been taking ifeo-fcz-wommuwu ibuprofen 800 mg 4 times a day. I advised her that 3 times a day as maximum and she should not take it 4 times a day as this can injure her kidneys. 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 Patient does smoke a pack a day for last 20 years. Patient was having some upper arm pain in the last 2 months. She has been seeing a chiropractor and this pain and symptoms have completely gone away. She is having no neck pain or upper arm symptoms at this point. She was never having any neck pain through this whole process. Physical exam: 47-year-old female alert pleasant. She has a very positive Tinel's over the median nerve which causes her pain and tingling in the palm of her hand. She has a positive Tinel's over the cubital tunnel which causes or tingling through the forearm and into the 5th finger. She has normal interosseous strength. Very positive carpal tunnel compression test which causes immediate numbness in the fingers. Positive Phalen's maneuver . 2+ radial pulse. She has full range motion of the wrist fingers and elbow. Two-point discrimination is 5/5, 6/6, 6/6, 5/5, 5/5. Neck range of motion is full without discomfort. Negative Spurling's maneuver. Impression: Patient has signs and symptoms of carpal tunnel as well as cubital tunnel syndrome of the right upper extremity. Strongly advised patient she needs to quit smoking as this is going to directly correlate with these problems. I recommended obtaining EMG study of both upper extremities. She states she does have some degree of symptoms in the left hand but they are minimal at this point. She does have a cock-up wrist splint at home but has not been using that. I strongly advised her to use on a regular basis. I have also recommended that she get a cubital tunnel splint online. We will provide with the information on this as well. She is to avoid talking on the phone with her elbow bent. We will set up test see her back afterwards. She is fairly miserable at this point with the symptoms in the arm and I am going to provide her with a Medrol Dosepak today and hopefully this will help get some of the irritability quiet down and help with her symptoms. Not available 02/18/2023 18:23:18 04/22/2023 04/22/2023 Impression: Patient has very symptomatic carpal tunnel syndrome. She has had constant tingling for 6 months. Her 2 point discrimination is still preserved. She has not improved with splinting Medrol Dosepak anti-inflammatory medication. She has cut back on smoking I have encouraged her to quit completely. I have talked her about the option of carpal tunnel release surgery and I have offered that to her. I feel that is the best next step for her. I have explained her that she does have a little bit of nerve damage this is why she has a constant tingling that has not gone away for the last 6 months and unfortunately she will likely have a little bit of residual tingling after carpal tunnel release surgery. There will tend to be some nerve healing. Nerve healing and regeneration is better in nonsmokers another reason for her to quit. I explained that she may have some permanent slight tingling or slight diminished sensitivity to her fingers even after nerve fiber regeneration has run its course. I would expect that she would have immediate relief from the nocturnal severe burning pain that wakes her in the the night immediately after the surgery. I discussed risks of surgery with her in detail such as nerve injury infection recurrence. If after surgery she continues to complain of swelling morning stiffness, I would consider obtaining blood work to rule out inflammatory arthritis such as rheumatoid arthritis but she no clinical abnormality today such as stiffness or tenderness or synovitis that would suggest an inflammatory arthritis today. Patient would like to proceed with surgery in early May we will schedule this at her convenience. 40 minutes were spent in total care this patient more than half the time spent in [id number]-ajax care. [email or web address] Not available 04/22/2023 16:08:31 06/03/2023 06/03/2023 HPI the patient returns. She is 2 weeks out from carppal tunnel release. She has had complete resolution of the numbness in the hand. She has been using the hand for light activities around the house. She has low bit of soreness at the incision but otherwise she is making good progress. Physical exam: The patient's stitches were removed. She does have a dry eschar at the incision. There is no redness or swelling noted it looks to be well sealed and healing well. She has full range of motion of the fingers. At this point she is having no numbness or tingling in the fingers. Impression: Patient is 2 weeks out from carpal tunnel release his right hand. She has had good resolution of the numbness. 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 I will give her restrictions for 1 month. At that time soreness in the hand from surgery should be dissipated and she should be able go back to full duty after that. I will see her back as needed. Not available 06/03/2023 17:24:51 Plan of Treatment Reminders Order Date Submit Date Provider Last Modified By Organization Details Last Modified Time Details Appointments None recorde d. Lab None recorde d. Referral None recorde d. Procedures None recorde d. Surgeries None recorde d. Imaging XR, wrist 023 02/19/20 23 [email or web address] [facility], [address], [place], [address], 3 07:27:40 Medication Orders None recorde d. Patient TargetsNo targets recorded. Patient InstructionsNo instructions recorded. Reason for Referral None Reported. Results Created Date Observation Date Name Description Value Unit Range Abnormal Flag Note LastModifiedBy Organization Detail LastModifiedTime 02/19/20 23 XR, wrist No observ ation record ed. [email or web address] [facility] [address], [place], [address], 02/18/2023 18:18:16 03/30/19 24 03/27/2023 elect romyo gram + nerve condu ction study No observ ation record ed. [email or web address] [facility] [address], [place], [address], 04/01/2023 09:31:29 Result Notes None recorded. Problems Name Problem SNOMED Code Status Onset Date Resolution Date Notes Provider Name and Address Organization Details Recorded Time Pain of right wrist 33074928547395 0 Active 2022 ADAN Mackay, [facility] [employer] [facility] 3 16:36:48 Numbness of hand 052069707 Active 2022 Ashly Watkins CMA null, [facility] [employer] [facility] 3 17:21:12 Bilateral wrist pain 77523806139370 105 Active 2023 Angeline Manning CNA null, [facility] [employer] [facility] 4 15:15:51 Problem Notes None recorded. Procedures Surgical History Date Name Laterality Status Provider Name and Address Organization Details Recorded Time Hand completed ADAN Mackay [facility] [employer] [facility] 02/18/2023 16:35:41 excision of pelvic endometriosis completed ADAN Mackay [facility] [employer] [facility] 02/18/2023 16:36:18 Imaging Results Imaging Date Name Status LastModified by Organization Details LastModified Time 02/18/2023 XR, wrist completed [email or web address] [facility] [place] [address], [place], [address], 02/18/2023 18:18:16 03/27/2023 electromyogram + nerve conduction study completed [address], [place], [address], 04/01/2023 09:31:29 Procedure Notes None recorded. Medical Equipment None Reported. Allergies Allergen ID Allergen Name Allergen Category Reaction Reaction Severity Criticality Documentation Date Start Date Code Code System Note Provider Name and Address Organization Details Recorded Time 25768 Substance with sulfonami de structure and antibacte rial mechanism of action (substanc e) medicatio n Not available Not available Not available 02/18/2023 11294 8003 SNOMED Talia Kong RMA null, [facility] 3 16:33:45 87020 acetamino phen / hydrocodo ne medicatio n Not available Not available Not available 02/18/2023 67815 2 RxNorm Talia Green, RMA null, [facility] 3 16:33:53 39398 clindamyc in Not available Not available Not available Not available 02/18/2023 2582 RxNorm Talia Green, RMA null, [facility] 3 16:34:04 07901 tetracycl ine medicatio n Not available Not available Not available 02/18/2023 86956 RxNorm Talia Green, RMA null, [facility] 3 16:34:18 23209 doxycycli ne Not available Not available Not available Not available 02/18/2023 3640 RxNorm Talia Green RMA null, [facility] 3 16:34:30 Medications Name Sig Start Date Stop Date Status Note LastModified by Organization Details LastModified Time baclofen 10 mg tablet TAKE ONE TABLET BY MOUTH UP TO THREE TIMES DAILY NEEDED 02/18 completed Not Available Not Available Not Available cephalexin 500 mg capsule TAKE 1 CAPSULE BY MOUTH EVERY 6 HOURS active Not Available Not Available No t Available diclofenac sodium 75 mg tablet,gabino yed release TAKE 1 TABLET BY MOUTH TWICE DAILY WITH MEALS. active Not Available Not Available No t Available methylpredn isolone 4 mg tablets in a dose pack FOLLOW PACKAGE DIRECTION S 04/22 completed Not Available Not Available Not Available Paxlovid 300 mg (150 mg x 2)-100 mg tablets in a dose pack TK 2 NIRMATREL VIR TS AND 1 RITONAVIR T TOGETHER PO BID FOR 5 DAYS 04/22 completed Not Available Not Available Not Available Vitals Date Recorded Body height Body mass index (BMI) Body weight Provider Name and Address Organization Details Last Updated DateTime 02/18/2023 162.56 cm 21.5 kg/m2 15330.05 g Talia Triana OSITOUmberto [facility] 02/18/2023 16:41:43 Date Recorded Body height Provider Name an d Address Organization Details Last Updated DateTime 04/22/2023 162.56 cm Angeline Manning CNA [facility] 04/22/2023 15:14:57 Date Recorded Body height Provider Name an d Address Organization Details Last Updated DateTime 06/03/2023 162.56 cm Jonelle Hernandez [facility] 06/03/2023 16:04:42 Social History Question Answer Notes LastModified by Organizat ion Details LastModified Time Tobacco Smoking Status Never Smoker Talia Kong OSITOUmberto romero [facility] 02/18/2023 16:35:27 What Is Your Level Of Alcohol Consumption? Occasional [email or web address] Information not available 02/18/2023 Sex: Unknown Functional Status None recorded. Mental Status None recorded. Family History Relationship Description Onset Age of this Age Resolved Age Notes LastModified by Organization Details LastModified Time Father Family history of malignant neoplasm Not available 2022 16:35:15 Medical History Condition Response BLINDNESS N KIDNEY STONES N MRSA N CARPAL TUNNEL SYNDROME N LUNG DISEASE/DISORDER N HISTORY OF DRUG ABUSE N RADIATION / CHEMOTHERAPY N COPD N SPORTS INJURY N ANKLE PAIN N BLOOD DISEASES N PAST SPINAL SURGERY N SCHIZOPHRENIA N SHINGLES N SHOULDER PAIN N BOWEL PROBLEMS N DEPRESSION (INCLUDING POST ) N FAILED BACK SYNDROME N STROKE/TIA N ULCERS N OTHER MODALITIES N KNEE PAIN N BENIGN PROSTATIC HYPERPLASIA N OBESITY N GERD/NAUSEA N ANEURYSM N URINARY/BLADDER/KIDNEY PROBLEMS N CORONARY ARTERY DISEASE (CAD) N Do you have Advance directive? N ADDICTION CONCERNS N USE OF BLOOD THINNERS N SKIN PROBLEMS N EMPHYSEMA N MUSCLE,JOINT OR BONE PROBLEMS N DVT N STOMACH ULCERS N BLOOD CLOTS N PAST HISTORY OF VEHICULAR ACCIDENT N USE OF NSAIDS N CONCUSSION OR SPINAL TRAUMA N ARTERIAL INSUFFICIENCY N NEUROPATHY N AIDS/HIV N FRACTURES N HYPERTENSION N ELBOW PAIN N TOURETTE'S N Metal allergy N ANXIETY DISORDER N BLOOD TRANSFUSION N ANEMIA/BLOOD DISORDER N BIPOLAR DISORDER N BRONCHITIS N OSTEOARTHRITIS N TUBERCULOSIS N FOOT PROBLEM N HEART VALVE DISORDERS N SLEEP APNEA N SOFT TISSUE INJURY N BACK INJECTIONS N ALLERGIES/HAYFEVER N INFECTIOUS DISEASE N HEART ARRHYTHMIA N ESRD N INSOMNIA N PAST INTERVENTIONAL PAIN MANAGEMENT HIST ORY N RHEUMATOID ARTHRITIS N HIGH CHOLESTEROL / HYPERLIPIDEMIA N PAST MEDICATION HISTORY N PVD N EDEMA N CHRONIC PAIN SYNDROME N CAROTID BLOCKAGE N BACK / NECK PROBLEMS N HAVE YOU BEEN HOSPITALIZED OR SEEN IN [facility] ER IN THE PAST YEAR ? N BURSITIS N HERNIATED DISC N DIALYSIS N POLYCYSTIC OVARIES N FIBROMYALGIA N OSTEOPOROSIS N ARTHRITIS N RESPIRATORY PROBLEMS N NO SIGNIFICANT PAST MEDICAL HISTORY N PAST HISTORY OF FALL N PERIPHERAL NEUROPATHY N DIABETES, TYPE N VON WILLIBRAND'S DISEASE N HEARTBURN / REFLUX N HEPATITIS / LIVER DISEASE N POST LAMINECTOMY SYNDROME N GOUT N SLEEP DISORDER N ALZHEIMER'S DISEASE N HERPES N SEIZURES/EPILEPSY N HEADACHES/MIGRAINES N VASCULAR DISEASE N Blood Disorder N HIP PAIN N DIZZINESS N HEAD TRAUMA OR INJURY N HEART DISEASE/HEART PROBLEMS N MULTIPLE SCLEROSIS N NEUROPSYCHOLOGICAL N CANCER: SPECIFY N CARDIAC ARRHYTHMIA N ANESTHESIA COMPLICATIONS N ATRIAL FIBRILLATION N AUTOIMMUNE DISEASE N Gynecological HistoryNo gynecological history recorded. Obstetrics History GPAL:G 0 P 0 0 0 0 Past Encounters Encounter ID Performer Location Encounter Start Date Encounter Closed Date Diagnosis/Indication Diagnosis SNOMED-CT Code Diagnosis ICD10 Code Diagnosis Note [id number] ALEX Holden [facility] [address] [place] [address] 02/18/2023 16:16:07 02/18/2023 18:27:59 Pain of right wrist 3379616364 26578 M25.972 [id number] Chung Sim MD [facility] [address] [place] [address] 04/22/2023 15:12:08 04/22/2023 17:36:27 Bilateral wrist pain 7477275322 7857418 M25.531 M25.303 [id number] ALEX Holden [facility] [place] [address] [place] [address] 06/03/2023 15:54:39 06/03/2023 17:28:47 Postoperative visit [id number] Z48.89 Health Concerns Section Related Observation LastModified by Organization Detai ls LastModified Time None Recorded Concern Status LastModified by Organization Details LastModified Time None Recorded Advance Directives Directive None Recorded Payers Encounter Date Sequence Insurance Name Policy Number Policy Bond Covered Member ID Bond Member ID Guarantor Name 02/18/2023 1 [place] [id number] Mary Bovinett [id number] Mary Bovinett 04/22/2023 1 [place] [id number] Amry Bovinett [id number] Mary Bovinett 06/03/2023 1 [place] [id number] Mary Bovinett [id number] Mary Bovinett Notes Date Note Type Note Provider Name and Address Organization Details Recorded Time 04/22/2023 text/html Patient returns. She was last seen by Nghia Dahl on 02/18/2023 and EMG nerve conduction velocity testing was ordered for her rather severe right carpal tunnel symptoms. She was given a cock-up splint to wear at night but she does not feel this has helped. She ends up sleeping with her hand hanging off the side the bed closer to the floor. She continues to awaken with severe symptoms of burning pain and intense tingling in the thumb through ring finger. Today she states that she has never had any tingling or burning in the 5th finger or the back of her hand. At last visit she was prescribed a Medrol Dosepak which did not help at all. She called in and a prescription for diclofenac was prescribed. She stop the ibuprofen she had been taking. She thinks this may have alleviated her pain a little bit. She complains of constant numbness and tingling in the thumb through ring fingers of the right hand and she has had tingling for the last 6 months she estimates. She complains that her fingers are very stiff in the morning and her hand feels tight like a balloon for several minutes after she awakens and starts to move her fingers and she will feel a aching on both sides of her wrist in the right hand swells. She never has any the symptoms on the left side. 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 She was advised to quit smoking at last visit and she has cut back. I had a long discussion with her today about quitting completely. We discussed how smoking constricts the blood vessels which reduces the blood flow through the nerve which contributes to this problem and contributes to the nerve damage due to lack of oxygen which is the central problem with carpal tunnel syndrome. We discussed the other health considerations of smoking and she seemed convince that she would be padilla to quit smoking completely now. The nerve conduction velocity test an EMG obtained on 03/27/2023 showed bilateral carpal tunnel syndrome right more than the left and no ulnar neuropathy. Normal needle/ EMG. I reviewed her previous x-rays from 02/20/2023 which showed no obvious abnormalities Right wrist. Patient states she has rare mild symptoms of numbness and tingling in left hand. Chung Sim MD [address] [place] [address], [place] [address], [place], [address], [facility] [employer] [facility] 04/22/2023 16:08:48 OBGyn Episode No OBEpisode recorded.
--- OUTSIDE RECORDS SUMMARY | 2024-05-04 11:07 | XMS_ITS | Clinical Summary ---
Author Organization [facility] Medical Office Building [address] [place] [id number] Care Team Providers Care Mixer Pigment Name Role Phone Bryce Tripathi MD Primary Care Provider Allergies Active Allergy Reactions Criticality Noted Date Comments Clindamycin Dizziness Low 01/22/2019 Dizziness/Light Headed Doxycycline Rash,Vomiting Medium 01/21/2019 Rash Hydrocodone Headache Low 01/21/2019 Headache Hydrocodone-Acetaminophen Headache High 03/09/2021 Sulfa (Sulfonamide Antibiotics) Stomach upset Low 01/21/2019 Stomach/GI Upset Tetracycline Rash Medium 01/21/2019 Runny Nose Active Problems Problem Noted Date Diagnosed Date Lumbago with sciatica 04/13/2016 Encounters Date Type Department Care Team Description 02/24/2024 2:03 PM ASSISTANT PROGRAM DIRECTOR - 02/24/2024 11:59 PM ASSISTANT PROGRAM DIRECTOR Hospital Encounter [facility] [address] [place] [id number] Mammographic microcalcification found on diagnostic imaging of breast; Family history of malignant neoplasm of breast Discharge Disposition: Discharge to home or self care from Last 3 Months Surgical History Surgery Date Site/Laterality Comments HYSTERECTOMY BREAST BIOPSY 08/23/2023 Left Family History Medical History Relation Name Comments Breast cancer Paternal Grandmother Relation Name Status Comments Paternal Grandmother Social History Tobacco Use Types Packs/Day Years Used Date Smoking Tobacco: Never Assessed Comments No Sex and Gender Information Value Date Recorded Sex Assigned at Not on file Legal Sex Female 12:36 AM ASSISTANT PROGRAM DIRECTOR Gender Identity Not on file Sexual Orientation Not on file Obstetrics History Para Term AB IAB SAB Ectopic Multiple Livin g Live Births 2 Date Outcome GA Total Labor Labor/2nd/3rd Weight Sex Type Anes PTL Teresa A1 A5 Name Clin Last Filed Vital Signs Vital Sign Reading Time Taken Comments Blood Pressure 132/81 03/09/2021 7:43 AM ASSISTANT PROGRAM DIRECTOR Pulse 53 03/09/2021 9:45 AM ASSISTANT PROGRAM DIRECTOR Temperature 37.4 C (99.4 F) 03/09/2021 7:43 AM ASSISTANT PROGRAM DIRECTOR Respiratory Rate 17 03/09/2021 7:43 AM ASSISTANT PROGRAM DIRECTOR Oxygen Saturation 98% 03/09/2021 9:45 AM ASSISTANT PROGRAM DIRECTOR Inhaled Oxygen Concentration - - Weight 56.2 kg (124 lb) 03/09/2021 7:43 AM ASSISTANT PROGRAM DIRECTOR Height 162.6 cm (5' 4 ) 03/09/2021 7:43 AM ASSISTANT PROGRAM DIRECTOR Body Mass Index 21.28 03/09/2021 7:43 AM ASSISTANT PROGRAM DIRECTOR Plan of Treatment Health Maintenance Due Date Last Done Comments Colon Cancer Screening-Colonoscopy 1977 Depression Screening 1977 Hepatitis C Screening 1977 DTaP/Tdap/Td Vaccine (1 - Tdap) 1988 Hepatitis B Screening 1995 Regular Well Visit/Exam 18-64 1995 Covid-19 Vaccine ( season) 2023 04/14/2020, 03/24/2020 Influenza Vaccine (#1) 2023 Breast Cancer Screening-Mammogram 07/10/2024 07/11/2023, 05/17/2022, 02/15/2021, Additional history exists Pneumococcal vaccine <65 Aged Out No longer eligible based on patient's age to complete this topic Medical Devices Implanted Type 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 Device Identifier Shelf Expiration Date Model / Serial / Lot [employer] Eviva 13cm Identifier Biopsy Site [id number] - [id number] Implanted:Qty: 1 on 08/23/2023 by Vince Jaramillo MD at [facility] [employer] [id number] 11/07/2023 LIAMK-EVIV A-13 / / [id number] Procedures Procedure Name Priority Date/Time Associated Diagnosis Comments DIAGNOSTIC MAMMOGRAM LEFT W LEXA Schedule Routine, Read Routine (OP Routine) 02/24/2024 2:22 PM ASSISTANT PROGRAM DIRECTOR Mammographic microcalcification found on diagnostic imaging of breast Family history of malignant neoplasm of breast SCREENING MAMMOGRAM BILATERAL W LEXA Schedule Routine, Read Routine (OP Routine) 07/11/2023 3:22 PM CDT Screening mammogram, encounter for from Last 3 Months or Most Recently Relevant to Health Maintenance Results * Diagnostic Mammogram Left W Lexa (02/24/2024 2:22 PM ASSISTANT PROGRAM DIRECTOR) Anatomical Region Laterality Modality Breast Left Mammography 02/24/2024 3:10 PM ASSISTANT PROGRAM DIRECTOR Narrative 02/24/2024 3:13 PM ASSISTANT PROGRAM DIRECTOR EXAM DESCRIPTION: DIAGNOSTIC MAMMOGRAM LEFT W LEXA REASON FOR STUDY: 48-year-old female presents for six-month follow-up status post benign left breast stereotactic biopsy in August 2023. TECHNIQUE: CC and LM views of the left breast were obtained with digital technique using breast tomosynthesis with C view. COMPARISON: Stereotactic breast biopsy dated 08/23/2023. Mammography dated 07/19/2023, 07/11/2023, 05/17/2022, and 02/15/2021. FINDINGS: DENSITY: The left breast is heterogeneously dense, which may obscure small masses. MAMMOGRAM FINDINGS: There is a biopsy marking clip in expected position at the 5-6 o'clock position of the left breast, corresponding with prior benign stereotactic biopsy. There is no new suspicious finding in the left breast on mammogram. IMPRESSION: 1. Expected mammographic appearance of the left breast following benign stereotactic biopsy. 2. No mammographic evidence of malignancy in the left breast. Annual screening mammography is recommended. I discussed these findings and recommendations with the patient at the time of the examination. BIRADS: 2 Benign findings. THIS IS AN ELECTRONICALLY VERIFIED FINAL REPORT 02/24/2024 3:13 PM - Electronically signed by Lico Shea M.D., MD: Report ID: [id number] Reading Location: [facility] us Vince Jaramillo MD IMG MAMMO PROCEDURES Final Res ult * (ABNORMAL) Screening Mammogram Bilateral W Lexa (07/11/2023 3:22 PM CDT) Anatomical Region Laterality Modality Breast Bilateral Mammography Impressions 07/11/2023 3:52 PM CDT BI-RADS ATLAS category (overall): 0 - Incomplete: Needs Additional Imaging Evaluation A small indeterminate group of microcalcifications is noted in the lower central left breast at posterior depth. Further evaluation with left unilateral diagnostic mammogram is recommended. No suspicious findings are identified in the right breast on mammogram. The patient has been or will be contacted. Narrative 07/11/2023 3:52 PM CDT Screening Mammogram Bilateral W Lexa: 07/11/23 The study was acquired using full field digital technology and interpreted from soft copy. 2D digital mammographic views, as well as 3D digital tomosynthesis were performed in the CC and MLO projections. CLINICAL: Screening mammogram, encounter for. No relevant medical history has been documented for this patient. History of breast cancer in Paternal Grandmother. COMPARISONS: 05/17/2022 Screening Mammogram Bilateral W Lexa 02/15/2021 Diagnostic Mammogram Bilateral W Lexa 02/16/2020 Diagnostic Mammogram Bilateral W Lexa BREAST TISSUE: The breasts are heterogeneously dense, which may obscure small masses. FINDINGS: There are unchanged benign microcalcifications in the right breast. A small indeterminate group of microcalcifications is noted in the lower central left breast at posterior depth. There is no other new suspicious finding in either breast on mammogram. Self Screening Mammogram [facility] MAMMO PROCEDURES Fi nal Result from Last 3 Months or Most Recently Relevant to Health Maintenance Insurance Care Teams Mixer Pigment Relationship Specialty Start Date End Date Bryce Tripathi MD [address] [facility] [address] [place] [address] PCP - General Internal Medicine 02/06/21
--- OUTSIDE RECORDS SUMMARY | 2024-05-04 11:07 | XMS_ITS | Clinical Summary ---
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 REPAIRER Gender Identity Not on file Sexual Orientation Not on file Plan of Treatment Health Maintenance Due Date Last Done Comments Hepatitis C Virus (HCV) Screening 1977 TdaP Immunization 1977 Hepatitis B Immunization (1 of 3 - 19+ 3-dose series) 1996 Pap Smear 1998 Cervical Cancer Screening (CCS) 2007 HPV/Cotest 2007 Discussion re Starting/Frequency of Mammograms 2017 Colonoscopy 2022 Colorectal Cancer Screening 2022 Influenza Immunization (#1) 2023 SARS-COV-2 Immunization ( season) 2023 04/14/2020, 03/24/2020 Respiratory Syncytial Virus (RSV) Immunization (Adult) (1 - 1-dose 75+ series) 2052 Meningococcal Immunization (ACWY) Aged Out No longer eligible b ased on patient's age to complete this topic Pneumococcal Immunization Combined Aged Out No longer eligible b ased on patient's age to complete this topic Rotavirus Immunization Aged Out No lo nger eligible based on patient's age to complete this topic
--- OUTSIDE RECORDS SUMMARY | 2024-05-04 11:07 | XMS_ITS | Data Portability ---
Author Organization [employer] Address [address] [address] Assessment Encounter Date Assessment Date Assessment LastModified by Organization Details LastModified Time 04/10/2021 04/10/2021 Recommended healthy nutrition, including a diet rich in fruits and vegetables, minimizing simple carbohydrates, salt, and saturated fats. Encouraged regular cardiovascular exercise such as walking at least 30 minutes daily, 5 times per week. Not available 04/10/2021 16:40:29 04/10/2022 04/10/2022 Recommends healthy nutrition, including a diet rich in fruits and vegetables, minimizing simple carbohydrates, salt, and saturated fats. Encouraged regular cardiovascular exercise such as walking at least 30 minutes daily, 5 times per week. Not available 04/10/2022 18:02:04 08/02/2023 08/02/2023 Recommends healthy nutrition, including a diet rich in fruits and vegetables, minimizing simple carbohydrates, salt, and saturated fats. Encouraged regular cardiovascular exercise such as walking at least 30 minutes daily, 5 times per week. [email or web address] Not available 08/02/2023 11:28:17 Plan of Treatment Reminders Order Date Submit Date Provider Last Modified By Organization Details Last Modified Time Details Appointments ANNUAL PHYSICAL 2024 07:45A Clarisa Tripathi MD Not available Not available Not available Lab PTH (parathyr oid hormone), intact + calcium, serum or plasma 2023 024 [email or web address], [address], [place], [address], 08/09/2023 08:09:03 vitamin D, 25-hydrox y, total, serum 2023 024 [facility], [address], [address], [place], [address], 08/09/2023 08:09:03 phosphoru s, serum or plasma 2023 024 [facility], [address], [address], [place], [address], 08/07/2023 13:13:38 CBC w/ auto diff 2023 024 [facility], [address], [address], [place], [address], 08/07/2023 13:13:35 lipid panel, serum 2023 [facility], [address], [address], [place], [address], 08/07/2023 13:13:38 CMP, serum or plasma 2023 024 [facility], [address], [address], [place], [address], 08/07/2023 13:13:36 HbA1c (hemoglob in A1c), blood 2023 [facility], [address], [address], [place], [address], 08/07/2023 13:13:33 noninvasi ve colorecta l cancer DNA + occult blood screening , QL, stool 2023 024 [employer] (Cologuard Orders Only), [address], [address], [place], [address], 08/23/2023 05:44:26 HIV 1+2 Ab + HIV1 p24 Ag, quantitat christiano immunoass ay, serum 2023 024 [facility], [address], [address], [place], [address], 08/02/2023 12:00:27 CMP, serum or plasma 2022 023 [facility], [address], [address], [place], [address], 04/17/2022 04:21:11 PTH (parathyr oid hormone), intact + calcium, serum or plasma 2022 023 [facility], [facility] [address], [address], [place], [address], 04/17/2022 04:21:08 vitamin D, 25-hydrox y, total, serum 2022 023 [facility], [facility] [address], [address], [place], [address], 04/17/2022 04:21:12 phosphoru s, serum or plasma 2022 023 [facility], [address], [address], [place], [address], 04/17/2022 04:21:10 lipid panel, serum 2022 023 [facility], [address], [address], [place], [address], 04/17/2022 04:21:07 CBC w/ auto diff 2022 023 [facility], [address], [address], [place], [address], 04/17/2022 04:21:11 HbA1c (hemoglob in A1c), blood 2022 023 [facility], [address], [address], [place], [address], 04/17/2022 04:21:13 HIV 1+2 Ab + HIV1 p24 Ag, quantitat christiano immunoass ay, serum 2022 023 [facility], [address], [address], [place], [address], 04/17/2022 04:21:09 CMP, serum or plasma 2021 [facility], [address], [address], [place], [address], 04/17/2021 08:25:27 PTH (parathyr oid hormone), intact + calcium, serum or plasma 2021 022 [facility], [address], [address], [place], [address], 04/17/2021 08:25:27 vitamin D, 25-hydrox y, total, serum 2021 022 [facility], [address], [address], [place], [address], 04/17/2021 08:25:27 lipid panel, serum 2021 022 [facility], [address], [address], [place], [address], 04/17/2021 08:25:27 urinalysi s complete, reflex culture 2021 022 [facility], [address], [address], [place], [address], 04/18/2021 13:05:20 cytology, urine 2021 022 [facility], [address], [address], [place], [address], 04/17/2021 08:25:28 HbA1c (hemoglob in A1c), blood 2021 022 [facility], [address], [address], [place], [address], 04/17/2021 08:25:28 hepatitis C Ab, serum 2021 022 [email or web address] [employer] [facility], [address], [address], [place], [address], 04/17/2021 08:25:28 CMP, serum or plasma 2020 021 [email or web address] Not available 03/21/2021 08:17:36 PTH (parathyr oid hormone), intact + calcium, serum or plasma 2020 021 [email or web address] Not available 06/12/2021 08:31:05 vitamin D, 25-hydrox y, total, serum 2020 021 [email or web address] Not available 06/12/2021 08:31:05 lipid panel, serum 2020 021 [email or web address] Not available 06/12/2021 08:31:05 hepatitis C Ab, serum 2020 021 [email or web address] Not available 06/12/2021 08:31:05 Referral urologist referral 2023 024 [email or web address] 16 Norm Dunlap MD, [address] [facility], [address], [place], [address], 08/02/2023 12:09:39 gynecolog ist referral 2023 024 [place], [address] [facility] [address], [place], [address], 10/31/2023 09:28:02 urologist referral 2022 023 [email or web address] John Paul Mchugh MD, [address] [place], [address], 05/08/2022 08:40:43 gynecolog ist referral 2022 023 [place], [address] [facility] [address], [place], [address], 07/09/2022 08:17:34 urologist referral 2021 022 barbara Mchugh MD, [address] [place], [address], 05/08/2021 08:27:41 gynecolog ist referral 2021 022 [email or web address] [address] [place], [address] [facility] [address], [place], [address], 04/10/2021 17:05:17 mammogram screening referral 2020 021 barbara [facility] Centralized Scheduling, Centralized Scheduling, [address], [place], [address], 04/11/2021 08:21:11 gynecolog ist referral 2020 021 [place], [address] [facility] [address], [place], [address], 06/12/2021 08:30:59 Procedures None recorded. Surgeries None recorded. Imaging XR, lumbosacr al spine, 4 or more view 2022 023 [facility] Centralized Scheduling, Centralized Scheduling, [address] [place], [address], 12/27/2022 12:34:01 XR, lumbar spine 2022 023 [email or web address] [facility] Patient Access Centralized Scheduling, Centralized Scheduling, [address] [place], [address], 04/17/2022 08:12:23 Medication Orders Medrol (Gustavo) 4 mg tablets in a dose pack [address] [id number], [address] [facility], [place], [place], [id number], 08/12/2023 19:06:02 baclofen 10 mg tablet 2022 023 [facility], [address] [place], [place], [id number], 12/26/2022 12:16:32 tramadol 50 mg tablet 2020 021 [facility], [address] [place], [place], [id number], 04/10/2021 16:04:30 Mucinex 1,200 mg tablet, extended release 2020 022 [facility], [address] [place], [place], [id number], 04/10/2021 16:05:11 Patient TargetsNo targets recorded. Patient Instructions Encounter Date Encounter Id Patient Instructions Last Modified By Organization Details Last Modified Time 03/14/[id number] hypocalcemia: care instructions Not available 03/14/2021 18:16:40 04/10/[id number] advised to quit smoking Not available 04/10/2021 17:00:25 04/10/2022 [id number] advised to quit smoking Not available 04/10/2022 18:13:15 Discussed and explained advance directives such as standard forms to the {{patient caregiv er patient and caregiver}}. Face to face discussion lasted for a duration of ___ minutes. [email or web address] Not available 04/10/2022 17:41:53 08/02/2023 [id number] heart-healthy diet: care instructions Not available 08/02/2023 11:59:48 advised to quit smoking Not available 08/02/2023 11:59:48 Reason for Referral Mammogram Screening Referral for Screening mammography Referring Physician: Bryce Tripathi, Internal Medicine, Encounter Date: 03/14/2021 Angle Shearer Referral for Sc reening for malignant neoplasm of cervix Referring Physician: Bryce Tripathi, Internal Medicine, Encounter Date: 03/14/2021 Angle Shearer Referral for Sc reening for malignant neoplasm of cervix Referring Physician: Bryce Tripathi Internal Medicine, Encounter Date: 04/10/2021 Urologist Referral for Histo ry of calculus of kidney Referring Physician: Bryce Tripathi Internal Medicine, Encounter Date: 04/10/2021 Angle Shearer Referral for Sc reening for malignant neoplasm of cervix Referring Physician: Bryce Tripathi Internal Medicine, Encounter Date: 04/10/2022 Urologist Referral for Histo ry of calculus of kidney Referring Physician: Bryce Tripathi Internal Medicine, Encounter Date: 04/10/2022 Angle Shearer Referral for Sc reening for malignant neoplasm of cervix Referring Physician: Bryce Tripathi Internal Medicine, Encounter Date: 08/02/2023 Urologist Referral for Histo ry of calculus of kidney Referring Physician: Bryce Tripathi Internal Medicine, Encounter Date: 08/02/2023 Results Created Date Observation Date Name Description Value Unit Range Abnormal Flag Note LastModifiedBy Organization Detail LastModifiedTime 04/17/1904/18/2021 LIPID PANEL , STAND POWER cholesterol, total 202 mg/dL <200 high Not Available [employer] [address] [address] [place], [address], 04/18/2021 13:05:18 04/17/1904/18/2021 LIPID PANEL , STAND POWER HDL cholesterol 56 mg/dL > or = 50 normal Not Available [facility] [address] [address], [place], [address], 04/18/2021 13:05:18 04/17/1904/18/2021 LIPID PANEL , STAND POWER triglyceride s 64 mg/dL <150 normal Not Available [facility] [address] [place], [address], 04/18/2021 13:05:18 04/17/19 22 04/18/2021 LIPID PANEL , STAND POWER LDL-choleste rol 130 mg/dL _(janel c) high Refer ence range : <100 Paola able range <100 mg/dL for prima ry preve ntion ; <70 mg/dL for patie nts with CHD or diabe tic patie nts with > or = 2 CHD risk facto rs. LDL-C is now calcu lated using the Ellie n-Hop kins calcu lita n, which is a valid ated novel metho d provi aiyana jayme r accur acy than the Fried emilio equat ion in the estim ation of LDL-C . Ellie mason SS et al. RALF. 2013; 310(1 9): 2061- 2068 (http ://ed ucati on.Slicethepie. [employer]/f aq/FA Q164) Not Available [facility] [address] [place], [address], 04/18/2021 13:05:18 04/17/1904/18/2021 LIPID PANEL , STAND POWER chol/HDLC ratio 3.6 (calc ) <5.0 normal Not Available [facility] [address] [place], [address], 04/18/2021 13:05:18 04/17/19 22 04/18/2021 LIPID PANEL , STAND POWER non HDL cholesterol 146 mg/dL _(janel c) <130 high For patie nts with diabe eloina plus 1 major ASCVD risk facto r, treat ing to a non-H DL-C goal of <100 mg/dL (LDL- C of <70 mg/dL ) is consi dered a thera peuti c optio n. Not Available [facility] [address] [place], [address], 04/18/2021 13:05:18 04/17/1904/18/2021 PTH, INTAC T AND CALCI UM parathyroid hormone, intact 21 pg/mL 14-64 normal Inter preti ve Guide Intac t PTH Calci um ----- ----- ----- --- ----- ----- ----- -- Laura l Parat hyroi d Laura l Laura l Hypop berenice yroid ism Low or Low Laura l Low Hyper parat hyroi dism Prima ry Laura l or High High Secon suraj High Laura l or Low Terti ting High High Non-P berenice yroid Hyper calce jose Low or Low Laura l High Not Available [address], [address], 04/18/2021 13:05:18 04/17/19 22 04/18/2021 PTH, INTAC T AND CALCI UM calcium 9.2 mg/dL 8.6-10 .2 normal Not Available [address], [address], 04/18/2021 13:05:18 04/17/19 22 04/18/2021 COMPR EHENS CHRISTIANO METAB OLIC PANEL glucose 117 mg/dL 65-99 high Fasti ng refer ence inter michael For someo ne witho ut known diabe eloina, a gluco se value betwe en 100 and 125 mg/dL is consi stent with predi abete s and shoul d be confi rmed with a follo w-up test. Not Available [address], [address], 04/18/2021 13:05:19 04/17/19 22 04/18/2021 COMPR EHENS CHRISTIANO METAB OLIC PANEL urea nitrogen (BUN) 13 mg/dL 7-25 normal Not Available [address], [address], 04/18/2021 13:05:19 04/17/19 22 04/18/2021 COMPR EHENS CHRISTIANO METAB OLIC PANEL creatinine 0.79 mg/dL 0.50-1 .10 normal Not Available [address], [address], 04/18/2021 13:05:19 04/17/19 22 04/18/2021 COMPR EHENS CHRISTIANO METAB OLIC PANEL eGFR non-afr. jordanian 91 mL/mi n/1.7 3m2 > or = 60 normal Not Available [address], [address], 04/18/2021 13:05:19 04/17/19 22 04/18/2021 COMPR EHENS CHRISTIANO METAB OLIC PANEL eGFR 106 mL/mi n/1.7 3m2 > or = 60 normal Not Available [address], [address], 04/18/2021 13:05:04/17/19 22 04/18/2021 COMPR EHENS CHRISTIANO METAB OLIC PANEL BUN/creatini ne ratio NOT APPLIC ABLE (calc ) 6-22 Not Available [address], [address], 04/18/2021 13:05:19 04/17/19 22 04/18/2021 COMPR EHENS CHRISTIANO METAB OLIC PANEL sodium 138 mmol/ L 135-14 6 normal Not Available [address], [address], 04/18/2021 13:05:19 04/17/19 22 04/18/2021 COMPR EHENS CHRISTIANO METAB OLIC PANEL potassium 4.1 mmol/ L 3.5-5. 3 normal Not Available [address], [address], 04/18/2021 13:05:19 04/17/19 22 04/18/2021 COMPR EHENS CHRISTIANO METAB OLIC PANEL chloride 104 mmol/ L 98-110 normal Not Available [address], [address], 04/18/2021 13:05:19 04/17/19 22 04/18/2021 COMPR EHENS CHRISTIANO METAB OLIC PANEL carbon dioxide 27 mmol/ L 20-32 normal Not Available [address], [address], 04/18/2021 13:05:04/17/19 22 04/18/2021 COMPR EHENS CHRISTIANO METAB OLIC PANEL calcium 9.2 mg/dL 8.6-10 .2 normal Not Available [address], [address], 04/18/2021 13:05:04/17/19 22 04/18/2021 COMPR EHENS CHRISTIANO METAB OLIC PANEL protein, total 7.6 g/dL 6.1-8. 1 normal Not Available [address], [address], 04/18/2021 13:05:04/17/19 22 04/18/2021 COMPR EHENS CHRISTIANO METAB OLIC PANEL albumin 4.7 g/dL 3.6-5. 1 normal Not Available [address], [address], 04/18/2021 13:05:04/17/19 22 04/18/2021 COMPR EHENS CHRISTIANO METAB OLIC PANEL globulin 2.9 g/dL_ (calc ) 1.9-3. 7 normal Not Available [address], [address], 04/18/2021 13:05:19 04/17/19 22 04/18/2021 COMPR EHENS CHRISTIANO METAB OLIC PANEL albumin/glob ulin ratio 1.6 (calc ) 1.0-2. 5 normal Not Available [address], [address], 04/18/2021 13:05:04/17/19 22 04/18/2021 COMPR EHENS CHRISTIANO METAB OLIC PANEL bilirubin, total 0.7 mg/dL 0.2-1. 2 normal Not Available [address], [address], 04/18/2021 13:05:19 04/17/19 22 04/18/2021 COMPR EHENS CHRISTIANO METAB OLIC PANEL alkaline phosphatase 57 U/L 31-125 normal Not Available [address], [address], 04/18/2021 13:05:19 04/17/19 22 04/18/2021 COMPR EHENS CHRISTIANO METAB OLIC PANEL AST 16 U/L 10-30 normal Not Available [address], [address], 04/18/2021 13:05:19 04/17/19 22 04/18/2021 COMPR EHENS CHRISTIANO METAB OLIC PANEL ALT 14 U/L 6-29 normal Not Available [address], [address], 04/18/2021 13:05:19 04/17/19 22 04/18/2021 URINA LYSIS , COMPL ETE W/REF KELLY TO CULTU RE color YELLOW yellow normal Not Available [address], [address], 04/18/2021 13:05:20 04/17/19 22 04/18/2021 URINA LYSIS , COMPL ETE W/REF KELLY TO CULTU RE appearance CLOUDY clear abnormal Not Available [address], [address], 04/18/2021 13:05:20 04/17/19 22 04/18/2021 URINA LYSIS , COMPL ETE W/REF KELLY TO CULTU RE specific gravity 1.023 1.001- 1.035 normal Not Available [address], [address], 04/18/2021 13:05:20 04/17/19 22 04/18/2021 URINA LYSIS , COMPL ETE W/REF KELLY TO CULTU RE pH < OR = 5.0 5.0-8. 0 normal Not Available [address] [address] [place], [address], 04/18/2021 13:05:20 04/17/19 22 04/18/2021 URINA LYSIS , COMPL ETE W/REF KELLY TO CULTU RE glucose NEGATI VE negati ve normal Not Available [address] [address] [place], [address], 04/18/2021 13:05:20 04/17/19 22 04/18/2021 URINA LYSIS , COMPL ETE W/REF KELLY TO CULTU RE bilirubin NEGATI VE negati ve normal Not Available [address], [address], 04/18/2021 13:05:20 04/17/19 22 04/18/2021 URINA LYSIS , COMPL ETE W/REF KELLY TO CULTU RE ketones TRACE negati ve abnormal Not Available [address] [address] [place], [address], 04/18/2021 13:05:20 04/17/19 22 04/18/2021 URINA LYSIS , COMPL ETE W/REF KELLY TO CULTU RE occult blood 1+ negati ve abnormal Not Available [address] [place], [address], 04/18/2021 13:05:20 04/17/19 22 04/18/2021 URINA LYSIS , COMPL ETE W/REF KELLY TO CULTU RE protein NEGATI VE negati ve normal Not Available [address] [address] [place], [address], 04/18/2021 13:05:20 04/17/19 22 04/18/2021 URINA LYSIS , COMPL ETE W/REF KELLY TO CULTU RE nitrite NEGATI VE negati ve normal Not Available [facility] [address], [address], 04/18/2021 13:05:20 04/17/19 22 04/18/2021 URINA LYSIS , COMPL ETE W/REF KELLY TO CULTU RE leukocyte esterase NEGATI VE negati ve normal Not Available [address], [address], 04/18/2021 13:05:20 04/17/19 22 04/18/2021 URINA LYSIS , COMPL ETE W/REF KELLY TO CULTU RE WBC NONE SEEN /hpf < or = 5 normal Not Available [address], [address], 04/18/2021 13:05:20 04/17/19 22 04/18/2021 URINA LYSIS , COMPL ETE W/REF KELLY TO CULTU RE RBC 3-10 /hpf < or = 2 abnormal Not Available [address], [address], 04/18/2021 13:05:20 04/17/19 22 04/18/2021 URINA LYSIS , COMPL ETE W/REF KELLY TO CULTU RE squamous epithelial cells 10-20 /hpf < or = 5 abnormal Not Available [address], [address], 04/18/2021 13:05:20 04/17/19 22 04/18/2021 URINA LYSIS , COMPL ETE W/REF KELLY TO CULTU RE bacteria NONE SEEN /hpf none seen normal Not Available [address], [address], 04/18/2021 13:05:20 04/17/19 22 04/18/2021 URINA LYSIS , COMPL ETE W/REF KELLY TO CULTU RE hyaline cast NONE SEEN /lpf none seen normal Not Available [address], [address], 04/18/2021 13:05:20 04/17/19 22 04/18/2021 URINA LYSIS , COMPL ETE W/REF KELLY TO CULTU RE reflexive urine culture NO CULTU RE INDIC ATED Not Available [address], [address], 04/18/2021 13:05:20 04/17/19 22 04/18/2021 HEPAT ITIS C AB W/REF L TO HCV RNA, QN, PCR hepatitis C antibody NON-RE ACTIVE non-re active normal Not Available [facility] [address], [address], 04/18/2021 13:05:20 04/17/19 22 04/18/2021 HEPAT ITIS C AB W/REF L TO HCV RNA, QN, PCR index 0.04 <1.00 normal HCV antib renata was non-r eacti ve. There is no labor atory evide nce of HCV infec tion. In most cases , no furth er actio n is requi red. Howev er, if recen t HCV expos ure is suspe cted, a test for HCV RNA (test code 62099 ) is sugge sted. For addit ional infor milton gaspar e refer to http: //[facility] lauren barcenasia gnost ics.c om/fa q/FAQ 22v1 (This link is being provi ded for infor milton denise/ educa raúl l purpo ses only. ) Not Available [address], [address], 04/18/2021 13:05:20 04/17/19 22 04/18/2021 VITAM IN D,25- OH,TO KATJA,I A vitamin D,25-oh,tota l,ia 34 NG/mL 30-100 normal Vitam in D Statu s 25-OH Vitam in D: Defic iency : <20 ng/mL Insuf ficie ncy: 20 - 29 ng/mL Optim al: > or = 30 ng/mL For 25-OH Vitam in D testi ng on patie nts on D2-guy pplem entat ion and patie nts for whom quant itati on of D2 and D3 fract ions is requi red, the [facility] Ass[facility] eD(TM ) 25-OH VIT D, (D2,D 3), LC/MS /MS is recom tee d: order code 02974 (ban ents >2yrs ). See Note 1 Note 1 For addit ional infor chasity arellano e refer to http: //[facility] lauren Barcenasia gnost ics.c om/fa q/FAQ 199 (This link is being provi ded for infor milton denise/ educa raúl eddy purpo ses only. ) Not Available [address], [address], 04/18/2021 13:05:21 04/17/19 22 04/18/2021 HEMOG LOBIN A1C hemoglobin A1C 5.1 %_of_ total _HGB <5.7 normal Not Available [address], [address], 04/18/2021 13:05:22 04/16/19 23 04/17/2022 LIPID PANEL , STAND POWER cholesterol, total 196 mg/dL <200 normal Not Available [address], [address], 04/17/2022 04:21:07 04/16/19 23 04/17/2022 LIPID PANEL , STAND POWER HDL cholesterol 59 mg/dL > or = 50 normal Not Available [address], [address], 04/17/2022 04:21:07 04/16/19 23 04/17/2022 LIPID PANEL , STAND POWER triglyceride s 53 mg/dL <150 normal Not Available [address], [address], 04/17/2022 04:21:07 04/16/19 23 04/17/2022 LIPID PANEL , STAND POWER LDL-choleste rol 123 mg/dL _(janel c) high Refer ence range : <100 Paola able range <100 mg/dL for prima ry preve ntion ; <70 mg/dL for patie nts with CHD or diabe tic patie nts with > or = 2 CHD risk facto rs. LDL-C is now calcu lated using the Ellie n-Hop kins calcu lita n, which is a valid ated novel metho d provi aiyana jayme r accur acy than the Fried emilio equat ion in the estim ation of LDL-C . Ellie mason SS et al. RALF. 2013; 310(1 9): 2061- 2068 (http ://ed ucati on.Slicethe[employer]. [employer]/f aq/FA Q164) Not Available [facility] [address] [address] [place], [address], 04/17/2022 04:21:07 04/16/19 23 04/17/2022 LIPID PANEL , STAND POWER chol/HDLC ratio 3.3 (calc ) <5.0 normal Not Available [facility] [place] [address] [place], [address], 04/17/2022 04:21:07 04/16/1904/17/2022 LIPID PANEL , STAND POWER non HDL cholesterol 137 mg/dL _(janel c) <130 high For patie nts with diabe eloina plus 1 major ASCVD risk facto r, treat ing to a non-H DL-C goal of <100 mg/dL (LDL- C of <70 mg/dL ) is yusuf foster optio n. Not Available [facility] [address] [place], [address], 04/17/2022 04:21:07 04/16/1904/17/2022 PTH, INTAC T AND CALCI UM parathyroid hormone, intact 18 pg/mL 16-77 normal Inter preti ve Guide Intac t PTH Calci um ----- ----- ----- --- ----- ----- ----- -- Laura l Parat hyroi d Laura l Laura l Hypop berenice yroid ism Low or Low Laura l Low Hyper parat hyroi dism Prima ry Laura l or High High Secon suraj High Laura l or Low Terti ting High High Non-P berenice yroid Hyper calce jose Low or Low Laura l High Not Available [facility] [address] [place], [address], 04/17/2022 04:21:08 04/16/19 23 04/17/2022 PTH, INTAC T AND CALCI UM calcium 8.8 mg/dL 8.6-10 .2 normal Not Available [facility] [address] [place], [address], 04/17/2022 04:21:08 04/16/19 23 04/17/2022 HIV 1/2 ANTIG EN/AN TIBOD Y,FOU RTH GENER ATION W/RFL HIV Ag/Ab, 4TH gen NON-RE ACTIVE non-re active normal HIV-1 antig en and HIV-1 /HIV- 2 antib odies were not detec vernon. There is no labor atory evide nce of HIV infec tion. PLEAS E NOTE: This infor matio n has been discl osed to you from recor ds whose confi denti ality may be prote cted by state law. If your state requi res such prote ction , then the state law prohi bits you from garcía mcgill furth er discl osure of the infor matio n witho ut the speci fic writt en conse nt of the perso n to whom it perta ins, or as other padilla permi tted by law. A gener al autho rizat ion for the relea se of medic al or other infor matio n is NOT suffi cient for this purpo se. For addit ional infor matio n pleas e refer to http: //tasha gonzalezque stdia gnost ics.c om/fa q/FAQ 106 (This link is being provi ded for infor matio nal/ educa raúl l purpo ses only. ) The perfo rmanc e of this assay has not been clini sachin valid ated in patie nts less than 2 years old. Not Available [employer] [address], [address], 04/17/2022 04:21:09 04/16/19 23 04/17/2022 PHOSP HATE ( PHOSP HORUS ) phosphate ( phosphorus) 3.5 mg/dL 2.5-4. 5 normal Not Available [facility] [address], [address], 04/17/2022 04:21:09 04/16/19 23 04/17/2022 COMPR EHENS CHRISTIANO METAB OLIC PANEL glucose 95 mg/dL 65-99 normal Fasti ng refer ence inter michael Not Available [facility] [address], [address], 04/17/2022 04:21:11 04/16/19 23 04/17/2022 COMPR EHENS CHRISTIANO METAB OLIC PANEL urea nitrogen (BUN) 13 mg/dL 7-25 normal Not Available [employer] [address], [address], 04/17/2022 04:21:11 04/16/19 23 04/17/2022 COMPR EHENS CHRISTIANO METAB OLIC PANEL creatinine 0.69 mg/dL 0.50-0 .99 normal Not Available [facility] [address], [address], 04/17/2022 04:21:11 04/16/19 23 04/17/2022 COMPR EHENS CHRISTIANO METAB OLIC PANEL eGFR 109 mL/mi n/1.7 3m2 > or = 60 normal The eGFR is based on the CKD-E PI 2020 equat ion. To calcu late the new eGFR from a previ ous Creat inine or Cysta tin C resul t, go to https ://clarice louise.o mari/savannah bolaños s/ kdoqi /gfr% 5Fcal culat or Not Available [facility] [place] [address] [place], [address], 04/17/2022 04:21:11 04/16/19 23 04/17/2022 COMPR EHENS CHRISTIANO METAB OLIC PANEL BUN/creatini ne ratio NOT APPLIC ABLE (calc ) 6-22 Not Available [address], [address], 04/17/2022 04:21:11 04/16/19 23 04/17/2022 COMPR EHENS CHRISTIANO METAB OLIC PANEL sodium 138 mmol/ L 135-14 6 normal Not Available [address], [address], 04/17/2022 04:21:11 04/16/19 23 04/17/2022 COMPR EHENS CHRISTIANO METAB OLIC PANEL potassium 4.5 mmol/ L 3.5-5. 3 normal Not Available [address], [address], 04/17/2022 04:21:11 04/16/19 23 04/17/2022 COMPR EHENS CHRISTIANO METAB OLIC PANEL chloride 105 mmol/ L 98-110 normal Not Available [address], [address], 04/17/2022 04:21:11 04/16/19 23 04/17/2022 COMPR EHENS CHRISTIANO METAB OLIC PANEL carbon dioxide 30 mmol/ L 20-32 normal Not Available [address], [address], 04/17/2022 04:21:11 04/16/19 23 04/17/2022 COMPR EHENS CHRISTIANO METAB OLIC PANEL calcium 8.8 mg/dL 8.6-10 .2 normal Not Available [address], [address], 04/17/2022 04:21:11 04/16/19 23 04/17/2022 COMPR EHENS CHRISTIANO METAB OLIC PANEL protein, total 6.8 g/dL 6.1-8. 1 normal Not Available [address], [address], 04/17/2022 04:21:11 04/16/19 23 04/17/2022 COMPR EHENS CHRISTIANO METAB OLIC PANEL albumin 4.3 g/dL 3.6-5. 1 normal Not Available [address], [address], 04/17/2022 04:21:11 04/16/19 23 04/17/2022 COMPR EHENS CHRISTIANO METAB OLIC PANEL globulin 2.5 g/dL_ (calc ) 1.9-3. 7 normal Not Available [address], [address], 04/17/2022 04:21:11 04/16/19 23 04/17/2022 COMPR EHENS CHRISTIANO METAB OLIC PANEL albumin/glob ulin ratio 1.7 (calc ) 1.0-2. 5 normal Not Available [address], [address], 04/17/2022 04:21:11 04/16/19 23 04/17/2022 COMPR EHENS CHRISTIANO METAB OLIC PANEL bilirubin, total 0.5 mg/dL 0.2-1. 2 normal Not Available [address], [address], 04/17/2022 04:21:11 04/16/19 23 04/17/2022 COMPR EHENS CHRISTIANO METAB OLIC PANEL alkaline phosphatase 53 U/L 31-125 normal Not Available [address], [address], 04/17/2022 04:21:11 04/16/19 23 04/17/2022 COMPR EHENS CHRISTIANO METAB OLIC PANEL AST 15 U/L 10-35 normal Not Available [address], [address], 04/17/2022 04:21:11 04/16/19 23 04/17/2022 COMPR EHENS CHRISTIANO METAB OLIC PANEL ALT 16 U/L 6-29 normal Not Available [address], [address], 04/17/2022 04:21:11 04/16/19 23 04/17/2022 CBC (INCL UDES DIFF/ PLT) white blood cell count 5.5 thous and/u L 3.8-10 .8 normal Not Available [address], [address], 04/17/2022 04:21:11 04/16/19 23 04/17/2022 CBC (INCL UDES DIFF/ PLT) red blood cell count 4.26 jimmie on/uL 3.80-5 .10 normal Not Available [address], [address], 04/17/2022 04:21:11 04/16/19 23 04/17/2022 CBC (INCL UDES DIFF/ PLT) hemoglobin 13.9 g/dL 11.7-1 5.5 normal Not Available [address], [address], 04/17/2022 04:21:11 04/16/1904/17/2022 CBC (INCL UDES DIFF/ PLT) hematocrit 40.2 % 35.0-4 5.0 normal Not Available [address], [address], 04/17/2022 04:21:11 04/16/19 23 04/17/2022 CBC (INCL UDES DIFF/ PLT) MCV 94.4 fL 80.0-1 00.0 normal Not Available [address], [address], 04/17/2022 04:21:11 04/16/19 23 04/17/2022 CBC (INCL UDES DIFF/ PLT) MCH 32.6 pg 27.0-3 3.0 normal Not Available [address], [address], 04/17/2022 04:21:11 04/16/19 23 04/17/2022 CBC (INCL UDES DIFF/ PLT) MCHC 34.6 g/dL 32.0-3 6.0 normal Not Available [address], [address], 04/17/2022 04:21:11 04/16/19 23 04/17/2022 CBC (INCL UDES DIFF/ PLT) RDW 12.0 % 11.0-1 5.0 normal Not Available [address], [address], 04/17/2022 04:21:11 04/16/19 23 04/17/2022 CBC (INCL UDES DIFF/ PLT) platelet count 176 thous and/u L 140-40 0 normal Not Available [address], [address], 04/17/2022 04:21:11 04/16/19 23 04/17/2022 CBC (INCL UDES DIFF/ PLT) MPV 11.0 fL 7.5-12 .5 normal Not Available [address], [address], 04/17/2022 04:21:11 04/16/19 23 04/17/2022 CBC (INCL UDES DIFF/ PLT) absolute neutrophils 2948 cells /uL 1500-7 800 normal Not Available [address], [address], 04/17/2022 04:21:11 04/16/19 23 04/17/2022 CBC (INCL UDES DIFF/ PLT) absolute lymphocytes 2107 cells /uL 850-39 00 normal Not Available [address], [address], 04/17/2022 04:21:11 04/16/19 23 04/17/2022 CBC (INCL UDES DIFF/ PLT) absolute monocytes 303 cells /uL 200-95 0 normal Not Available [address], [address], 04/17/2022 04:21:11 04/16/19 23 04/17/2022 CBC (INCL UDES DIFF/ PLT) absolute eosinophils 110 cells /uL 15-500 normal Not Available [address], [address], 04/17/2022 04:21:11 04/16/19 23 04/17/2022 CBC (INCL UDES DIFF/ PLT) absolute basophils 33 cells /uL 0-200 normal Not Available [address], [address], 04/17/2022 04:21:11 04/16/19 23 04/17/2022 CBC (INCL UDES DIFF/ PLT) neutrophils 53.6 % normal Not Available [address], [address], 04/17/2022 04:21:11 04/16/1904/17/2022 CBC (INCL UDES DIFF/ PLT) lymphocytes 38.3 % normal Not Available [address], [address], 04/17/2022 04:21:11 04/16/1904/17/2022 CBC (INCL UDES DIFF/ PLT) monocytes 5.5 % normal Not Available [address], [address], 04/17/2022 04:21:11 04/16/19 23 04/17/2022 CBC (INCL UDES DIFF/ PLT) eosinophils 2.0 % normal Not Available [facility] [address] [address] [place], [address], 04/17/2022 04:21:11 04/16/19 23 04/17/2022 CBC (INCL UDES DIFF/ PLT) basophils 0.6 % normal Not Available [facility] [address] [address] [place], [address], 04/17/2022 04:21:11 04/16/19 23 04/17/2022 VITAM IN D,25- OH,TO KATJA,I A vitamin D,25-oh,tota l,ia 41 NG/mL 30-100 normal Vitam in D Statu s 25-OH Vitam in D: Defic iency : <20 ng/mL Insuf ficie ncy: 20 - 29 ng/mL Optim al: > or = 30 ng/mL For 25-OH Vitam in D testi ng on patie nts on D2-guy pplem entat ion and patie nts for whom quant itati on of D2 and D3 fract ions is requi red, the [facility](TM ) 25-OH VIT D, (D2,D 3), LC/MS /MS is recom tee d: order code 12461 (ban ents >2yrs ). See Note 1 Note 1 For addit ional infor chasity arellano e refer to http: //[facility] lauren Olivera stDia gnost ics.c om/fa q/FAQ 199 (This link is being provi ded for infor milton denise/ sidra eddy purpo ses only. ) Not Available [facility] [address] [place], [address], 04/17/2022 04:21:12 04/16/1904/17/2022 HEMOG LOBIN A1C hemoglobin A1C 5.2 %_of_ total _HGB <5.7 normal For the purpo se of scree noé for the prese nce of diabe eloina: <5.7% Consi stent with the absen ce of diabe eloina 5.7-6 .4% Consi stent with incre ased risk for diabe eloina (pred iabet es) > or =6.5% Consi stent with diabe eloina This assay resul t is consi stent with a decre ased risk of diabe eloina. Curre ntly, no conse nsus exist s jing bronson use of hemog lobin A1c for diagn osis of diabe eloina in child bhavesh. Accor ding to Ameri can Diabe eloina Assoc iatio n (ADA) guide lines , hemog lobin A1c <7.0% repre sents optim al contr ol in non-p regna nt diabe tic patie nts. Diffe rent metri cs may apply to speci fic patie nt popul ation s. [facility] Medic al Care in Diabe eloina(A DA). Not Available [facility] [address] [address], [place], [address], 04/17/2022 04:21:13 08/05/19 24 08/05/2023 HEMOG LOBIN A1C hemoglobin A1C 5.7 % 4.8-5. 6 high LAURA L RANGE BASED ON RICHARD COL 2 (DCCT /NGSP ): Non-D iabet ic: < 5.7% Pre-D iabet es: 5.7 - 6.4% Diabe eloina: => 6.5% GLYCE FIORELLA CONTR OL: < 7.0% Not Available [facility] [address] [facility] [address], [place], [address], 08/07/2023 13:13:33 08/05/19 24 08/05/2023 HEMOG LOBIN A1C estimated average glucose 117 Not Available [facility] [address] [facility] [address], [place], [address], 08/07/2023 13:13:33 08/05/19 24 08/05/2023 CBC WITH AUTO- DIFFE RENTI AL WBC 6.8 10*3/ uL 3.4-10 .8 Not Available [facility] [address] [facility] [address], [place], [address], 08/07/2023 13:13:35 08/05/19 24 08/05/2023 CBC WITH AUTO- DIFFE RENTI AL RBC 4.71 10*6/ uL 3.80-5 .30 Not Available [facility] [address], [place], [address], 08/07/2023 13:13:35 08/05/19 24 08/05/2023 CBC WITH AUTO- DIFFE RENTI AL HGB 14.9 g/dL 11.1-1 5.9 Not Available [facility] [address] [facility] [address], [place], [address], 08/07/2023 13:13:35 08/05/19 24 08/05/2023 CBC WITH AUTO- DIFFE RENTI AL HCT 46.1 % 34.0-4 6.6 Not Available [facility] [address] [facility] [address], [place], [address], 08/07/2023 13:13:35 08/05/19 24 08/05/2023 CBC WITH AUTO- DIFFE RENTI AL MCV 98 fL 79-97 high Not Available [facility] [address] [facility] [address], [place], [address], 08/07/2023 13:13:35 08/05/19 24 08/05/2023 CBC WITH AUTO- DIFFE RENTI AL MCH 31.6 pg 26.6-3 3.0 Not Available [facility] [address] [facility] [address], [place], [address], 08/07/2023 13:13:35 08/05/19 24 08/05/2023 CBC WITH AUTO- DIFFE RENTI AL MCHC 32.3 g/dL 31.5-3 5.7 Not Available [facility] [address] [facility] [address], [place], [address], 08/07/2023 13:13:35 08/05/19 24 08/05/2023 CBC WITH AUTO- DIFFE RENTI AL RDW 12.6 % 11.5-1 4.5 Not Available [facility] [address] [facility] [address], [place], [address], 08/07/2023 13:13:35 08/05/19 24 08/05/2023 CBC WITH AUTO- DIFFE RENTI AL platelets 170 10*3/ uL 150-40 0 Not Available [facility] [address] [place] [address] [address], [place], [address], 08/07/2023 13:13:35 08/05/19 24 08/05/2023 CBC WITH AUTO- DIFFE RENTI AL MPV 11 fL 9-13 Not Available [facility] [address] [facility] [address], [place], [address], 08/07/2023 13:13:35 08/05/19 24 08/05/2023 CBC WITH AUTO- DIFFE RENTI AL neutrophils 66.2 % 40.0-7 4.0 Not Available [facility] [address] [facility] [address], [place], [address], 08/07/2023 13:13:35 08/05/19 24 08/05/2023 CBC WITH AUTO- DIFFE RENTI AL absolute neutrophils 4.52 10*3/ uL 1.40-7 .00 Not Available [facility] [address] [facility] [address], [place], [address], 08/07/2023 13:13:35 08/05/19 24 08/05/2023 CBC WITH AUTO- DIFFE RENTI AL lymphocytes 27.8 % 14.0-4 6.0 Not Available [facility] [address] [facility] [address], [place], [address], 08/07/2023 13:13:35 08/05/19 24 08/05/2023 CBC WITH AUTO- DIFFE RENTI AL absolute lymphocytes 1.90 10*3/ uL 0.70-3 .10 Not Available [facility] [address] [facility] [address], [place], [address], 08/07/2023 13:13:35 08/05/19 24 08/05/2023 CBC WITH AUTO- DIFFE RENTI AL monocytes 4.5 % 4.0-12 .0 Not Available [facility] [address] [facility] [address], [place], [address], 08/07/2023 13:13:35 08/05/19 24 08/05/2023 CBC WITH AUTO- DIFFE RENTI AL absolute monocytes 0.31 10*3/ uL 0.10-0 .90 Not Available [facility] [address] [facility] [address], [place], [address], 08/07/2023 13:13:35 08/05/19 24 08/05/2023 CBC WITH AUTO- DIFFE RENTI AL eosinophils 1.0 % 0.0-5. 0 Not Available [facility] [address] [facility] [address], [place], [address], 08/07/2023 13:13:35 08/05/19 24 08/05/2023 CBC WITH AUTO- DIFFE RENTI AL absolute eosinophils 0.07 10*3/ uL 0.00-0 .40 Not Available [facility] [address] [facility] [address], [place], [address], 08/07/2023 13:13:35 08/05/19 24 08/05/2023 CBC WITH AUTO- DIFFE RENTI AL basophils 0.4 % 0.0-3. 0 Not Available [facility] [address] [place] [address] [address], [place], [address], 08/07/2023 13:13:35 08/05/19 24 08/05/2023 CBC WITH AUTO- DIFFE RENTI AL absolute basophils 0.03 10*3/ uL 0.00-0 .20 Not Available [facility] [address] [facility] [address], [place], [address], 08/07/2023 13:13:35 08/05/19 24 08/05/2023 CBC WITH AUTO- DIFFE RENTI AL imm. gran. 0.1 % 0.0-2. 0 Not Available [facility] [address] [facility] [address], [place], [address], 08/07/2023 13:13:35 08/05/19 24 08/05/2023 CBC WITH AUTO- DIFFE RENTI AL abs. imm. gran. 0.01 10*3/ uL 0.00-0 .10 Not Available [facility] [address] [facility] [address], [place], [address], 08/07/2023 13:13:35 08/05/19 24 08/05/2023 COMPR EHENS CHRISTIANO METAB OLIC PANEL sodium 140 mmol/ L 134-14 4 Not Available [facility] [address] [facility] [address], [place], [address], 08/07/2023 13:13:36 08/05/19 24 08/05/2023 COMPR EHENS CHRISTIANO METAB OLIC PANEL potassium 4.3 mmol/ L 3.5-5. 2 Not Available [facility] [address] [facility] [address], [place], [address], 08/07/2023 13:13:36 08/05/19 24 08/05/2023 COMPR EHENS CHRISTIANO METAB OLIC PANEL chloride 103 mmol/ L 97-108 Not Available [facility] [address] [facility] [address], [place], [address], 08/07/2023 13:13:36 08/05/19 24 08/05/2023 COMPR EHENS CHRISTIANO METAB OLIC PANEL carbon dioxide (co2) 27.0 mmol/ L 18.0-2 9.0 Not Available [facility] [address] [facility] [address], [place], [address], 08/07/2023 13:13:36 08/05/19 24 08/05/2023 COMPR EHENS CHRISTIANO METAB OLIC PANEL glucose 106 mg/dL 65-99 high Laura l Fasti ng: < 100 mg/dL Impai red Fasti n - 125 mg/dL Diagn ostic of Diabe eloina: => 126 mg/dL Ameri can Diabe eloina Assoc iatio n, 2007 Not Available [facility] [address] [facility] [address], [place], [address], 08/07/2023 13:13:36 08/05/19 24 08/05/2023 COMPR EHENS CHRISTIANO METAB OLIC PANEL urea nitrogen (BUN) 12 mg/dL 6-20 Not Available [facility] [address] [facility] [address], [place], [address], 08/07/2023 13:13:36 08/05/19 24 08/05/2023 COMPR EHENS CHRISTIANO METAB OLIC PANEL creatinine 0.97 mg/dL 0.57-1 .00 Not Available [facility] [address] [facility] [address], [place], [address], 08/07/2023 13:13:36 08/05/19 24 08/05/2023 COMPR EHENS CHRISTIANO METAB OLIC PANEL eGFR for nonafrican AM 62 mL/mi nute/ 1.73_ m2 >59 Not Available [facility] [address] [facility] [address], [place], [address], 08/07/2023 13:13:36 08/05/19 24 08/05/2023 COMPR EHENS CHRISTIANO METAB OLIC PANEL eGFR for AM 75 mL/mi nute/ 1.73_ m2 >59 MDRD Study Equat ion: The calcu lated GFR is NOT appli cable for pedia tric (< 18 years old) and > 70 year old patie nts and patie nts that are NOT of stead y state . Not Available [facility] [address] [facility] [address], [place], [address], 08/07/2023 13:13:36 08/05/19 24 08/05/2023 COMPR EHENS CHRISTIANO METAB OLIC PANEL calcium 9.3 mg/dL 8.7-10 .2 Not Available [facility] [address] [facility] [address], [place], [address], 08/07/2023 13:13:36 08/05/19 24 08/05/2023 COMPR EHENS CHRISTIANO METAB OLIC PANEL protein, total 8.3 gm/dL 6.4-8. 3 Not Available [facility] [address] [facility] [address], [place], [address], 08/07/2023 13:13:36 08/05/19 24 08/05/2023 COMPR EHENS CHRISTIANO METAB OLIC PANEL albumin 4.5 gm/dL 3.5-5. 2 Not Available [facility] [address] [facility] [address], [place], [address], 08/07/2023 13:13:36 08/05/19 24 08/05/2023 COMPR EHENS CHRISTIANO METAB OLIC PANEL bilirubin, total 0.60 mg/dL 0.00-1 .20 Not Available [facility] [address] [facility] [address], [place], [address], 08/07/2023 13:13:36 08/05/19 24 08/05/2023 COMPR EHENS CHRISTIANO METAB OLIC PANEL alkaline phosphatase (ALP) 71 U/L 39-117 Not Available [facility] [address] [facility] [address], [place], [address], 08/07/2023 13:13:36 08/05/19 24 08/05/2023 COMPR EHENS CHRISTIANO METAB OLIC PANEL aspartate aminotransfe rase (AST) 16 U/L 0-32 Not Available [facility] [address] [facility] [address], [place], [address], 08/07/2023 13:13:36 08/05/19 24 08/05/2023 COMPR EHENS CHRISTIANO METAB OLIC PANEL alanine aminotransfe rase (ALT) 11 U/L 0-33 Not Available [facility] [address] [facility] [address], [place], [address], 08/07/2023 13:13:36 08/05/19 24 08/05/2023 COMPR EHENS CHRISTIANO METAB OLIC PANEL A/G ratio (calculated) 1.2 ratio 1.0-2. 7 Not Available [facility] [address] [facility] [address], [place], [address], 08/07/2023 13:13:36 08/05/19 24 08/05/2023 COMPR EHENS CHRISTIANO METAB OLIC PANEL globulin (calculated) 3.8 gm/dL 1.5-3. 8 Not Available [facility] [address] [facility] [address], [place], [address], 08/07/2023 13:13:36 08/05/19 24 08/05/2023 COMPR EHENS CHRISTIANO METAB OLIC PANEL BUN/creatini ne ratio (calculated) 12.4 ratio 8.0-20 .0 Not Available [facility] [address] [facility] [address], [place], [address], 08/07/2023 13:13:36 08/05/19 24 08/05/2023 COMPR EHENS CHRISTIANO METAB OLIC PANEL serum hemolysis index Normal index normal Not Available [facility] [address] [facility] [address], [place], [address], 08/07/2023 13:13:36 08/05/19 24 08/05/2023 LIPID PANEL W/ CALC. LDL cholesterol, total 198 mg/dL 100-19 9 Not Available [facility] [address] [facility] [address], [place], [address], 08/07/2023 13:13:38 08/05/19 24 08/05/2023 LIPID PANEL W/ CALC. LDL HDL cholesterol 59 mg/dL =>40 Not Available [facility] [address] [facility] [address], [place], [address], 08/07/2023 13:13:38 08/05/19 24 08/05/2023 LIPID PANEL W/ CALC. LDL LDL cholesterol (calculated) 123 mg/dL 0-99 high Not Available [facility] [address] [facility] [address], [place], [address], 08/07/2023 13:13:38 08/05/19 24 08/05/2023 LIPID PANEL W/ CALC. LDL triglyceride s 80 mg/dL 50-149 Not Available [facility] [address] [facility] [address], [place], [address], 08/07/2023 13:13:38 08/05/19 24 08/05/2023 LIPID PANEL W/ CALC. LDL chol/HDL ratio (calculated) 3.36 ratio 0.00-5 .00 Not Available [facility] [address] [facility] [address], [place], [address], 08/07/2023 13:13:38 08/05/19 24 08/05/2023 LIPID PANEL W/ CALC. LDL VLDL cholesterol (calculated) 16 mg/dL 5-40 Not Available [facility] [address] [facility] [address], [place], [address], 08/07/2023 13:13:38 08/05/19 24 08/05/2023 PHOSP HOROU S phosphorous 3.7 mg/dL 2.5-4. 5 Not Available [facility] [address] [facility] [address], [place], [address], 08/07/2023 13:13:38 08/05/19 24 08/05/2023 PARAT HYROI D HORMO NE (PTH) PLUS CALCI UM parathyroid hormone (PTH), intact 19.7 pg/mL 15.0-6 5.0 PTH (pg/m L) CALCI UM (mg/d L) 15.0 - 65.0 8.6 - 10.2 - Laura l > 65.0 > 10.2 - Prima ry Hyper parat hyroi dism > 65.0 < 10.2 - Secon suraj Hyper parat hyroi dism < 65.0 > 10.2 - Nonpa rathy roid Hyper calce jose < 15.0 < 8.6 - Hypop berenice yroid ism 15 - 65 < 8.6 - Nonpa rathy roid Hypoc alcem ia Not Available [facility] [address] [facility] [address], [place], [address], 08/07/2023 13:13:39 08/05/19 24 08/05/2023 PARAT HYROI D HORMO NE (PTH) PLUS CALCI UM calcium 9.3 mg/dL 8.7-10 .2 Not Available [facility] [address] [facility] [address], [place], [address], 08/07/2023 13:13:39 08/05/19 24 08/05/2023 VITAM IN D, 25-HY DROXY TOTAL vitamin D, total 92.9 NG/mL 30.0-1 00.0 The Vitam in D Assay johana london n has been updat ed to offer direc t trace abili ty to ID-LC -MS/M S Refer ence Measu remen t Proce dure along with a reduc tion in bioti n inter feren ce. Defic ient: < 20 ng/mL Insuf ficie nt: 21 - 29 ng/mL Suffi cient : 30 - 100 ng/mL Poten tial Intox icati on: > 100 ng/mL Not Available [facility] [address] [facility] [address], [place], [address], 08/07/2023 13:13:40 08/05/19 24 08/07/2023 HUMAN IMMUN ODEFI CIENC Y VIRUS 1/0/2 (HIV) W/ CONFI RMATI ON HIV Ab/P24 Ag screen Non Reacti ve non reacti ve normal HIV Negat christiano HIV-1 /HIV- 2 antib odies and HIV-1 p24 antig en were NOT detec vernon. There is no labor atory evide nce of HIV infec tion. Not Available [facility] [address], [place], [address], 08/07/2023 13:13:41 08/18/19 24 08/18/2023 COLOG UARD cologuard result reportable NEGATI VE negati ve normal NEGAT CHRISTIANO TEST RESUL T. A negat christiano Colog uard resul t indic ates a low likel ihood that a color ectal cance r (CRC) or advan andres adeno ma (raghavendra omato us polyp s with more advan andres pre-m align ant featu res) is prese nt. The chanc e that a perso n with a negat christiano Colog uard test has a color ectal cance r is less than 1 in 1500 (nega tive predi ctive value >99.9 %) or has an advan andres adeno ma is less than 5.3% (nega tive predi ctive value 94.7% ). These data are based on a prosp ectiv e cross -sect ional study of 10,00 0 indiv idual s at [facility] ge risk for color ectal cance r who were scree olivia with both Colog uard and colon oscop y. (Farhan Harris et al, N Engl J Med 2014; 370(1 4):12 86-12 97) The laura l value (refe rence range ) for this assay is negat christiano. COLOG UARD RE-SC REEHEDY NG RECOM MENDA TION: Perio dic color ectal cance r scree noé is an impor tant part of preve ntive healt hcare for asymp tomat ic indiv idual s at dupuyer ge risk for color ectal cance r. Follo wing a negat christiano Colog uard resul t, the Ameri can Cance r Socie ty and U.S. Multi -Soci ety Task Force scree noé guide lines recom mend a Colog uard re-sc reeni ng inter michael of 3 years . Refer ences : Ameri can Cance r Socie ty Guide line for Color ectal Cance r Scree noé: https ://clarice w.can cer.o rg/ca ncer/ colon -rect al-ca ncer/ detec tion- diagn osis- stagi ng/ac s-rec ommen datio ns.ht ml.; Rik DK, Issa zamudio CR, Arnoldo hassan JK, Color ectal Cance r Scree noé: Recom menda tions for Physi cians and Patie nts from the U.S. Multi -Soci ety Task Force on Color ectal Cance r Scree noé , Sanam Adair oente rolog y 2017; 112:1 016-1 030. TEST DESCR IPTIO N: [place] site algor ithmi c graciela sis of stool DNA-b iozoya napoles with hemog lobin immun oassa y. Quant itati ve value s of indiv idual bioma rkers are not repor table and are not assoc iated with indiv idual bioma rker resul t refer ence range s. Colog uard is inten ded for color ectal cance r scree noé of adult s of eithe r sex, 45 years or older , who are at [facility] for color ectal cance r (CRC) . Colog uard has been appro gris for use by the U.S. FDA. The perfo rmanc e of Colog uard was estab lishe d in a cross secti onal study of [facility] adult s aged 50-84 . Colog uard perfo rmanc e in patie nts ages 45 to 49 years was estim ated by sub-g roup graciela sis of near- age group s. Colon oscop ies perfo rmed for a posit christiano resul t may find as the most clini sachin signi kristin mcgill n: color ectal cance r [4.0% ], advan andres adeno ma (incl uding sessi le cristi vernon polyp s great er than or equal to 1cm diame ter) [20%] or non- advan andres adeno ma [31%] ; or no color ectal neopl jamie [45%] . These estim ates are deriv ed from a prosp ectiv e cross -sect ional scree noé study of ,00 0 indiv idual s at avera ge risk for color ectal cance r who were scree olivia with both Colog uard and colon oscop y. (Farhan Eugene al, N Engl J Med 2014; 370(1 4):12 86-12 97.) Colog uard may produ ce a false negat christiano or false posit christiano resul t (no color ectal cance r or preca ncero us polyp prese nt at colon oscop y follo w up). A negat christiano Colog uard test resul t does not guara ntee the absen ce of CRC or advan andres adeno ma (pre- cance r). The curre nt Colog uard scree noé inter michael is every 3 years . (Amer ican Cance r Socie ty and U.S. Multi -Soci ety Task Force ). Colog uard perfo rmanc e data in a 0 patie nt pivot al study using colon oscop y as the refer ence metho d can be acces sed at the follo wing locat ion: www.e xactl abs.c om/re sulnam . Addit ional descr iptio n of the Colog uard test proce ss, warni ngs and preca ution s can be found at www.c juany pradod.c om. Not Available [employer] (Cologuard Orders Only) [address], [place], [address], 08/23/2023 05:44:26 08/31/19 23 08/28/2022 XR, foot No observ ation record ed. [address], [place], [address], 09/02/2022 16:11:26 12/28/19 23 12/26/2022 XR, lumbo sacra l spine , 4 or more view No observ ation record ed. [address] Patient Access Centralized Scheduling Centralized Scheduling [address], [place], [address], 08/02/2023 11:33:57 06/21/19 24 06/21/2023 XR, abdom en No observ ation record ed. [address], [place], [address], 08/02/2023 11:33:57 07/19/19 24 07/19/2023 MAMMO , diagn ostic , digit al, unila teral No observ ation record ed. [address] [facility], [place], [address], 08/02/2023 11:33:56 02/24/20 24 02/24/2024 MAMMO , diagn ostic , digit al, unila teral No observ ation record ed. [address] [facility] [address], [address], 02/24/2024 18:40:43 Result Notes None recorded. 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 2016 L-Spin bulging disc L5-S-1 Dahiana Negro, ANP-BC [address], [place], [address], [facility] 7 11:51:56 COVID-19 709252940 Active 2020 Bryce Tripathi MD [address], [place], [address], [facility] 1 18:02:55 Hyperglycemi a 30086773 Active 2022 Bryce Tripathi MD [address], [place], [address], [facility] 3 18:01:21 Hypocalcemia 7940737 Active 2022 Bryce Tripathi MD [address], [place], [address], [facility] 3 18:01:21 Panic attack 591490792 Active 2022 Bryce Tripathi MD [address], [place], [address], [facility] 3 18:01:21 Microscopic hematuria 988055678 Active 2022 Bryce Tripathi MD [address], [place], [address], [facility] 3 18:01:21 Nicotine dependence 52842677 Active 2022 Bryce Tripathi MD [address], [place], [address], [facility] 3 18:01:21 Low back pain 068830311 Active 2022 Bryce Tripathi MD [address], [place], [address], [facility] 3 18:13:46 Problem Notes None recorded. Procedures Surgical History Date Name Laterality Status Provider Name and Address Organization Details Recorded Time 06/21/19 24 lithotripsy completed Bryce Tripathi MD [address], [place], [address], [facility] 08/02/2023 11:39:22 05/20/19 24 Carpal tunnel surgery completed Bryce Tripathi MD [address], [place], [address], [facility] 08/02/2023 11:37:31 03/14/20 22 Date of Last Pap Smear completed Emely Lipscomb [facility] 12/26/2022 10:59:38 05/29/19 13 Partial Hysterectomy completed Dahiana Negro ANP-BC [address], [place], [address], [facility] 04/13/2016 11:53:31 Imaging Results Imaging Date Name Status [facility]Modified by [facility] Details LastModified Time 08/28/2022 XR, foot completed [address], [place], [address], 09/02/2022 16:11:26 12/26/2022 XR, lumbosacral spine, 4 or more view completed [address] Patient Access Centralized Scheduling Centralized Scheduling [address] [place], [address], 08/02/2023 11:33:57 06/21/2023 XR, abdomen completed [address], [place], [address], 08/02/2023 11:33:57 07/19/2023 MAMMO, diagnostic, digital, unilateral completed [address] [place], [address], 08/02/2023 11:33:56 02/24/2024 MAMMO, diagnostic, digital, unilateral completed [address] [facility] [address] [place] [address], [address], 02/24/2024 18:40:43 Procedure Notes None recorded. Medical Equipment None Reported. Allergies Allergen ID Allergen Name Allergen Category Reaction Reaction Severity Criticality Documentation Date Start Date Code Code System Note Provider Name and Address Organization Details Recorded Time 6543 doxycycli ne Not available vomiting moderate Not available 04/04/2017 3640 RxNorm MURPHY VALVERDE APN [address], [place], [address], [facility] 8 10:22:34 6544 Substance with sulfonami de structure and antibacte rial mechanism of action (substanc e) medicatio n rash moderate Not available 04/04/2017 69575 8003 SNOMED MURPHY VALVERDE APN [address], [place], [address], [facility] 8 10:22:50 6545 tetracycl ine medicatio n rash moderate Not available 04/04/2017 82835 RxNorm MURPHY VALVERDE APN [address], [place], [address], [facility] 8 10:23:09 6546 acetamino phen / hydrocodo ne medicatio n headache severe Not available 04/04/2017 48428 2 RxNorm MURPHY VALVERDE APN [address] [address], [place], [address], [facility] 8 10:23:31 Medications Name Sig Start Date Stop Date Status Note LastModified by Organization Details LastModified Time ondansetron odt 4 mg tbdp 02/03 completed Not Available Not Available Not Available clindamycin hcl 300 mg caps 12/29 completed Not Available Not Available Not Available nitrofurant oin monohydrate /macrocryst als 100 mg caps 02/03 completed Not Available Not Available Not Available amoxicillin /clavulanat e potassium 875-125 mg tabs 12/29 completed Not Available Not Available Not Available tramadol hydrochlori de/acetamin ophen 37.5-325 mg tabs 02/03 completed Not Available Not Available Not Available cephalexin 500 mg caps 02/03 completed Not Available Not Available Not Available tamsulosin hydrochlori de 0.4 mg caps 02/03 completed Not Available Not Available Not Available etodolac 500 mg tabs 02/03 completed Not Available Not Available Not Available ibuprofen 600 mg tabs 02/03 completed Not Available Not Available Not Available tramadol hcl 50 mg tabs 02/03 completed Not Available Not Available Not Available penicillin v potassium 500 mg tabs 12/29 completed Not Available Not Available Not Available cefixime 400 mg caps 02/03 completed Not Available Not Available Not Available amoxicillin 500 mg capsule 03/14 completed Not Available Not Available Not Available Flomax 0.4 mg capsule Take 1 capsule every day by oral route. 02/03 completed Not Available Not Available Not Available buspirone 5 mg tablet Take 1 tablet twice a day by oral route as needed. 04/10 completed Not Available Not Available Not Available hydrocodone 5 mg-acetamin ophen 325 mg tablet TAKE 1 TO 2 TABLETS BY MOUTH EVERY 6 HOURS NEEDED FOR PAIN active Not Available Not Available No t Available ciprofloxac in 500 mg tablet TK 1 T PO BID 03/14 completed Not Available Not Available Not Available tramadol 50 mg tablet TAKE 1 TABLET BY MOUTH EVERY 6 HOURS NEEDED FOR PAIN active Not Available Not Available No t Available Macrobid 100 mg capsule Take 1 capsule every 12 hours by oral route. 02/03 completed Not Available Not Available Not Available baclofen 10 mg tablet TAKE ONE TABLET BY MOUTH UP TO THREE TIMES DAILY NEEDED active Not Available Not Available No t Available cephalexin 500 mg capsule TAKE 1 CAPSULE BY MOUTH EVERY 6 HOURS 08/11 completed Not Available Not Available Not Available diclofenac sodium 75 mg tablet,gabino yed release TAKE 1 TABLET BY MOUTH TWICE DAILY WITH MEALS. active Not Available Not Available No t Available methylpredn isolone 4 mg tablets in a dose pack FOLLOW PACKAGE DIRECTION S 08/11 completed Not Available Not Available Not Available cefdinir 300 mg capsule Take 1 capsule every 12 hours by oral route for 10 days. 07/29 completed Not Available Not Available Not Available amoxicillin 875 mg-potassiu m clavulanate 125 mg tablet TAKE 1 TABLET BY MOUTH EVERY 12 HOURS 03/14 completed Not Available Not Available Not Available neomycin-po lymyxin-hyd rocort 3.5 mg-10,000 unit/mL-1 % ear drops,susp INSTILL 4 DROPS INTO AFFECTED EAR(S) BY OTIC ROUTE 3 TIMES PER DAY x 3 days 04/04 completed Not Available Not Available Not Available Mucinex 1,200 mg tablet, extended release Take 1 tablet every 12 hours by oral route. 04/10 completed Not Available Not Available Not Available Paxlovid 300 mg (150 mg x 2)-100 mg tablets in a dose pack TK 2 NIRMATREL VIR TS AND 1 RITONAVIR T TOGETHER PO BID FOR 5 DAYS active Not Available Not Available No t Available Vitals Date Recorded Body height Respiratory rate Body mass index (BMI) Body weight Heart rate Body temperature Systolic blood pressure Diastolic blood pressure Provider Name and Address Organization Details Last Updated DateTime 3 162.56 cm 16 /min 22.1 kg/m2 81311.4 2 g 66 /min 97.5 [degF] 108 mm[Hg] 74 mm[Hg] Ashlie Kerr [facility] 3 17:45:14 Date Recorded Body height Body mass index (BMI) Body weight Respiratory rate Body temperature Heart rate Systolic blood pressure Diastolic blood pressure Provider Name and Address Organization Details Last Updated DateTime 3 162.56 cm 21.5 kg/m2 49047.0 5 g 16 /min 97.8 [degF] 75 /min 97 mm[Hg] 68 mm[Hg] Emely Lipscomb [facility] 3 10:59:01 Date Recorded Body height Heart rate Respiratory rate Body temperature Body mass index (BMI) Body weight Systolic blood pressure Diastolic blood pressure Provider Name and Address Organization Details Last Updated DateTime 4 162.56 cm 86 /min 16 /min 97 [degF] 21.1 kg/m2 67491.8 6 g 100 mm[Hg] 70 mm[Hg] Emely Lipscomb [facility] 4 10:44:51 Date Recorded Body height Provider Name an d Address Organization Details Last Updated DateTime 03/14/2021 162.56 cm June [facility] 03/14/2021 16:37:09 Date Recorded Body height Body mass index (BMI) Body weight Body temperature Respiratory rate Heart rate Systolic blood pressure Diastolic blood pressure Provider Name and Address Organization Details Last Updated DateTime 2 162.56 cm 21.5 kg/m2 55815.0 5 g 97.5 [degF] 16 /min 80 /min 90 mm[Hg] 60 mm[Hg] Page Shen [facility] 2 16:07:29 Social History Question Answer Notes LastModified by Organizat ion Details LastModified Time Tobacco Smoking Status Current Every Day Smoker Dahiana Negro, ANP-BC [address], [place], [address], [facility] 04/13/2016 11:54:07 What Is Your Level Of Alcohol Consumption? Occasional [email or web address] Information not available 04/10/2021 What Is Your Level Of Caffeine Consumption? Heavy [email or web address] Information not available 04/10/2021 What Was The Date Of Your Most Recent Tobacco Screening? 08/02/2023 [email or web address] Information not available 08/02/2023 Do You Use Any Illicit Or Recreational Drugs? No Information not available 04/10/2021 Do You Or Have You Ever Used Any Other Forms Of Tobacco Or Nicotine? No [email or web address] Information not available 04/10/2021 Sex: Unknown Functional Status None recorded. Mental Status None recorded. Family History Relationship Description Onset Age of this Age Resolved Age Notes LastModified by Organization Details LastModified Time Maternal Aunt Diabetes mellitus (Prince ) Not available 04/10/2021 16:58:40 Notes:-- no FH for any Cance rs, or any CAD Medical History No medical history recorded. Gynecological History Statement/Question Response Date of Last Pap Smear 03/14/2022 Obstetrics History GPAL:G 0 P 0 0 0 0 Immunizations Vaccine Type Date Status Note Provider Nam e and Address Organization Details Recorded Time Influenza, split virus, quadrivalent, preservative 7 completed MURPHY VALVERDE APN [address], [place], [address], [facility] 04/04/2017 10:27:27 Past Encounters Encounter ID Performer Location Encounter Start Date Encounter Closed Date Diagnosis/Indication Diagnosis SNOMED-CT Code Diagnosis ICD10 Code Diagnosis Note [id number] Dahiana Negro [facility], [facility] [address] [place] [address] 04/13/2016 11:29:23 04/13/2016 12:34:08 Hip pain 59138512 M25.559 [id number] [facility] [address] [place] [address] 08/09/2016 15:50:05 08/09/2016 16:16:17 Otitis media 66838067 H66.92 Otalgia 16319704 H92.02 [id number] MURPHY VLAVERDE APN [facility], [facility] [address] [place] [address] 04/04/2017 10:06:53 04/04/2017 10:37:15 Sinusitis 00274488 J32.9 Adult heal th examination 075127503 Z00.00 Screening mammography 24 763962 Z12.31 Screening for malignant neoplasm of cervix 028948212 Z12.4 completed in October 2016 Administra tion of diphtheria, pertussis, and tetanus vaccine 984524536 [facility] Hyperlipid emia screening 390157605 Z13.220 [id number] MURPHY VALVERDE APN [employer], [facility] [address] [place] [address] 07/29/2018 12:13:19 07/29/2018 12:49:18 Adult health examination 658461644 Z00.00 Screening mammography 24 156655 Z12.31 completed saturday Screening for malignant neoplasm of cervix 543933904 Z12.4 completed in October 2017 - Dr. Mariama Damian Hyperlipid emia screening 332294523 Z13.220 Pharyngitis 737500534 J0 2.9 Hypocalcemia 1986009 E83 .51 noted 03/2017 - CMP ordered Active or passive immunization 841433459 Z23 obtained at [facility] will need record [id number] MURPHY VALVERDE APN [employer], [employer] [address] [place] [address] 12/29/2018 08:59:34 12/29/2018 09:30:55 Acute urinary tract infection 811984915 N39.0 Cefixime rx Hypocalcemia 5748930 E83 .51 resolved - Hyperglycemia 10566517 R 73.9 Kidney stone 93345844 N2 0.0 Microscopic hematuria [address] abd - completed Active or passive immunization 832459884 Z23 will be obtaining from employer - [facility] [id number] MURPHY VALVERDE APN [employer], [facility] [address] [place] [address] 02/03/2019 14:23:46 02/03/2019 16:01:29 Panic attack 641159753 F41.0 01/28/19 - ED visit - first anxiety attack - ativan was given IV - NO rx given at discharge -resolved in ED - has not occured since -labs unremarkab le - CBC, CMP, TSH, EKG,declin es psych or counselor at this time-- if symptoms do not improve of worsen, call the office History of calculus of kidney 279437901 Z87.442 recent cystoscopy with lithotrips y Anel Johnsonk1/follow up next week - Active or passive immunization 653684568 Z23 obtained flu vaccinatio n - - [facility] [id number] Bryce Tripathi MD [employer], [employer] [address] [place] [address] 12/14/2019 10:35:52 12/14/2019 12:26:30 Acute pharyngitis 800958558 J02.9 Suspected COVID-19 28549 4004 Z03.818 -- pt agrees to go to [facility] to be tested today [id number] Bryce Tripathi MD [employer], [employer] [address] [place] [address] 05/16/2020 17:40:36 05/19/2020 11:31:12 Acute pharyngitis 715408678 J02.9 [id number] Bryce Tripathi MD [employer], [employer] [address] [place] [address] 03/14/2021 16:33:54 03/14/2021 18:20:02 Headache 52498248 R51.9 (frontal) Hypocalcemia 7031943 E83 .51 Hyperlipid emia screening 009569306 Z13.220 Screening mammography 24 462352 Z12.31 completed saturday Screening for malignant neoplasm of cervix 066397494 Z12.4 completed in October 2017 - Dr. Mariama Damian Active or passive immunization 941859942 Z23 obtained at [facility] Hepatitis C screening 41 6859441 Z11.59 COVID-19 003010299 U07.1 -- tested postive w/ PCR for Covid on 03/03/21 [place] [id number] Bryce Tripathi MD [employer] [address] [place] [address] 04/10/2021 15:37:00 04/10/2021 17:05:16 Adult health examination 699715124 Z00.00 COVID-19 682479753 U07.1 -- tested postive w/ PCR for Covid on 03/02/21 ([place]-- completely recovered without any residuals 2 weeks ago. Hypocalcemia 5444852 E83 .51 Hyperlipid emia screening 291314594 Z13.220 Active or passive immunization 042226230 Z23 obtained at [facility]- - pt reported she had 2 Pfizer Covid shots Hepatitis C screening 41 8400225 Z11.59 Screening for malignant neoplasm of cervix 364833059 Z12.4 -- pt saw Dr. Mariama Damian in Dec 2020 Panic attack 115384028 F 41.0 -- no recurrece since Mar 2019 History of calculus of kidney 206645895 Z87.442 -- seeing Urologist Dr John Paul Kenney (last saw Dr Mchugh around Aug 2020) Microscopic hematuria 19 1052303 R31.29 Hyperglycemia 71576394 R 73.9 Screening for malignant neoplasm of breast 022688825 Z12.39 -- pt wants her mammograms to be ordered and Managed by her [employer] Dr John Paul Damian Nicotine dependence 5629 4008 F17.200 -- advise to Quit smoking. [id number] Bryce Tripathi MD [place], [facility] [address] [place] [address] 04/10/2022 15:53:16 04/10/2022 18:16:27 Adult health examination 972998884 Z00.00 Hypocalcemia 5048264 E83 .51 Hyperglycemia 42774119 R 73.9 History of calculus of kidney 687185219 Z87.442 -- seeing Urologist Dr John Paul Kenney-- pt's next urologist appt will be 04/25/22 COVID-19 110695135 U07.1 -- tested postive w/ PCR for Covid on 03/02/21 ([place]-- completely recovered without any residuals 2 weeks ago. Nicotine dependence 5629 4008 F17.200 -- advised to quit smoking because of increased risks for stroke, heart attacks, cancers, COPD (emphysema /chronic bronchitis ), aneurysm and premature .-- advise to Quit smoking. Hyperlipid emia screening 865602377 Z13.220 Hepatitis C screening 41 1518769 Z11.59 -- tested negative for Hepatitis C on 04/17/21 Active or passive immunization 358976295 Z23 obtained at [facility]- - pt reported she had 2 Pfizer Covid shots-- pt does not want flu shot Screening for malignant neoplasm of breast 496930023 Z12.39 -- pt wants her mammograms to be ordered and Managed by her [employer] Dr John Paul Damian; next mammogram scheduled for 05/18/22 Screening for malignant neoplasm of cervix 882593062 Z12.4 -- pt saw Dr. Mariama Damian in Dec 2020 HIV screening 345396723 Z11.4 Low back pain 266431906 M54.50 [id number] Bryce Tripathi MD [place] [employer] [facility] [address] [place] [address] 12/26/2022 10:08:08 12/26/2022 12:17:25 Low back pain 014473488 M54.50 -- saw Chiropract or Dr Jalloh (70% improved compared to last week) [id number] Bryce Tripathi MD [place] [employer] [facility], [facility] [address] [place] [address] 08/02/2023 10:23:29 08/02/2023 12:09:38 Adult health examination 838947961 Z00.00 Low back pain 361964574 M54.50 -- following w/ Chiropract or Dr Jalloh-- xrays on 06/21/23 showed facet arthritis, mild DDD and levoscolio sis Hypocalcemia 0579567 E83 .51 Hyperglycemia 07731129 R 73.9 History of calculus of kidney 767108647 Z87.442 -- seeing Urologist Dr John Paul Kenney-- pt's next urologist appt will be 04/25/22 Nicotine dependence 5629 4008 F17.200 -- advised to quit smoking because of increased risks for stroke, heart attacks, cancers, COPD (emphysema /chronic bronchitis ), aneurysm and premature .-- advise to Quit smoking. Hepatitis C screening 41 3550988 Z11.59 -- tested negative for Hepatitis C on 04/17/21 HIV screening 077511204 Z11.4 CDC recommends that everyone between the ages of 13 and 64 get tested for HIV at least once as part of routine health care. Active or passive immunization 309727032 Z23 obtained at [facility]- - pt reported she had 2 Pfizer Covid shots-- pt does not want flu shot Screening for malignant neoplasm of breast 118802541 Z12.39 -- pt wants her mammograms to be ordered and Managed by her [employer] Dr John Paul Damian;-- mammogram last done 07/19/23 --> pt has scheduled bx w/ Gen Surgeon Dr Vince Larios on 08/23/23 at 7:30 AM Screening for malignant neoplasm of cervix 821272407 Z12.4 -- pt saw Dr. Mariama Damian in Dec 2020 Hyperlipidemia 36413052 E78.5 Will need to:-- avoid Cheese (cheese on burgers, Pizza, lasagna, Juarez, Parmesan), -- you will also need to limit egg yolks to 2 yolks a week (but as many egg whites he wants).-- Avoid Small,-- trim off fatty rubbery meat before consuming, -- avoid butter & Margarine, -- No whole milk or 2% milk (but 1%, 1/2% & fat free milk is fine). Screening for malignant neoplasm of colon 436518645 Z12.11 Body mass index 20-24 - normal [id number] Z68.21 -- pt is in the healthy weight category w/ a BMI of 21.1 (ideal is between 20-25) Health Concerns Section Related Observation LastModified by Organization Detai ls LastModified Time None Recorded Concern Status LastModified by Organization Details LastModified Time None Recorded Advance Directives Directive None Recorded Payers Encounter Date Sequence Insurance Name Policy Number Policy Bond Covered Member ID Bond Member ID Guarantor Name 03/14/2021 1 [place] [id number] Mary R Bovinett [id number] Mary R Bovinett 04/10/2021 1 [place] [id number] Mary R Bovinett [id number] Mary R Bovinett 04/10/2022 1 [place] [id number] Mary R Bovinett [id number] Mary R Bovinett 12/26/2022 1 [place] [id number] Mary R Bovinett [id number] Mary R Bovinett 08/02/2023 1 [place] [id number] Mary R Bovinett [id number] Mary R Bovinett Notes Date Note Type Note Provider Name and Address Organization Details Recorded Time 03/14/2021 text/html Pt on [facility] [phone] Telehealth for Headaches.Pt denies any visual sx, speech problems, memory or confusion problems, focal muscle weakness, numbness /tingling, unsteady balance or gait, coordination problems, urinary symptoms, or bowel symptoms, worsening /increasing symptoms or any new sx. Bryce Tripathi MD [address] [facility] [address], [place], [address], [facility] 03/14/2021 18:18:07 04/10/2021 text/html Pt comes in for f/u of hypocalcemia, microscopic hematuria, nicotine dependence, and weight monitoring. Pt also here for her annual PE. Pt feels well and has no c/o Patient denies any jaw or neck discomfort, left arm pain/left arm discomfort, chest discomfort/pain, diaphoresis, breathing symptoms/chest tightness, indigestion sx, n/v, any angina equivalent symptoms, etc. Bryce Tripathi MD [address] [facility] [address], [place], [address], [facility] 04/10/2021 17:09:24 04/10/2022 text/html Pt comes in for annual PE. Pt feels well and has no c/o. Pt has no new sx and no increasing sx. Patient denies any jaw or neck discomfort, left arm pain/left arm discomfort, chest discomfort/pain, diaphoresis, breathing symptoms/chest tightness, indigestion sx, n/v, any angina equivalent symptoms, etc. Bryce Tripathi MD [address] [facility] [address], [place], [address], [facility] 04/10/2022 18:16:54 12/26/2022 text/html Pt comes in for LBP radiating to LLE (knees). Initially lifting or standing will increase pain; lay supine will relieve pain. Pt denies any injury/trauma, or focal muscle weakness, numbness /tingling, unsteady balance or gait, coordination problems, urinary symptoms, or bowel symptoms, worsening /increasing symptoms or any new sx. Bryce Tripathi MD [address] [facility] [address], [place], [address], [facility] 12/26/2022 12:16:40 08/02/2023 text/html Pt comes in for f/u of HLD, Hypocalcemia, Hyperglycemia, Nicotine use (still smoking and have not quit smoking). Pt is also due for annual PE. Pt feels well and has no c/o. Pt has no new sx and no increasing sx. Patient denies any jaw or neck discomfort, left arm pain/left arm discomfort, chest discomfort/pain, diaphoresis, breathing symptoms/chest tightness, indigestion sx, n/v, any angina equivalent symptoms, etc. Bryce Tripathi MD [address] [facility] [address], [place], [address], [facility] 08/02/2023 12:01:53 OBGyn Episode No OBEpisode recorded.
--- OUTSIDE RECORDS SUMMARY | 2024-05-04 11:07 | XMS_ITS | Referral Summary ---
Author Organization [facility] [address] [place] [id number] Care Team Providers Care Stage Set Designer Name Role Phone Bryce Tripathi MD Primary Care Provider [phone] Encounters Date Type Department Care Team Description 02/24/2024 2:03 PM PRESS MACHINE FEEDER - 02/24/2024 11:59 PM PRESS MACHINE FEEDER Hospital Encounter [facility] [address] [place] [address] [place] [id number] Mammographic microcalcification found on diagnostic imaging of breast; Family history of malignant neoplasm of breast Discharge Disposition: Discharge to home or self care from Last 3 Months Allergies Active Allergy Reactions Criticality Noted Date Comments Clindamycin Dizziness Low 01/22/2019 Dizziness/Light Headed Doxycycline Rash,Vomiting Medium 01/21/2019 Rash Hydrocodone Headache Low 01/21/2019 Headache Hydrocodone-Acetaminophen Headache High 03/09/2021 Sulfa (Sulfonamide Antibiotics) Stomach upset Low 01/21/2019 Stomach/GI Upset Tetracycline Rash Medium 01/21/2019 Runny Nose Active Problems Problem Noted Date Diagnosed Date Lumbago with sciatica 04/13/2016 Social History Tobacco Use Types Packs/Day Years Used Date Smoking Tobacco: Never Assessed Comments No Sex and Gender Information Value Date Recorded Sex Assigned at Not on file Legal Sex Female 12:36 AM PRESS MACHINE FEEDER Gender Identity Not on file Sexual Orientation Not on file Last Filed Vital Signs Vital Sign Reading Time Taken Comments Blood Pressure 132/81 03/09/2021 7:43 AM PRESS MACHINE FEEDER Pulse 53 03/09/2021 9:45 AM PRESS MACHINE FEEDER Temperature 37.4 C (99.4 F) 03/09/2021 7:43 AM PRESS MACHINE FEEDER Respiratory Rate 17 03/09/2021 7:43 AM PRESS MACHINE FEEDER Oxygen Saturation 98% 03/09/2021 9:45 AM PRESS MACHINE FEEDER Inhaled Oxygen Concentration - - Weight 56.2 kg (124 lb) 03/09/2021 7:43 AM PRESS MACHINE FEEDER Height 162.6 cm (5' 4 ) 03/09/2021 7:43 AM PRESS MACHINE FEEDER Body Mass Index 21.28 03/09/2021 7:43 AM PRESS MACHINE FEEDER Plan of Treatment Not on file Medical Devices Implanted Type Area Casino Cage Supervisor Device Identifier Shelf Expiration Date Model / Serial / Lot [employer] Eviva 13cm Identifier Biopsy Site [id number] - [id number] Implanted:Qty: 1 on 08/23/2023 by Vince Jaramillo MD at [facility] [employer] [id number] 11/07/2023 SMARK-EVIV A-13 / / [id number] Procedures Procedure Name Priority Date/Time Associated Diagnosis Comments DIAGNOSTIC MAMMOGRAM LEFT W LEXA Schedule Routine, Read Routine (OP Routine) 02/24/2024 2:22 PM PRESS MACHINE FEEDER Mammographic microcalcification found on diagnostic imaging of breast Family history of malignant neoplasm of breast SCREENING MAMMOGRAM BILATERAL W LEXA Schedule Routine, Read Routine (OP Routine) 07/11/2023 3:22 PM CDT Screening mammogram, encounter for from Last 3 Months or Most Recently Relevant to Health Maintenance Results * Diagnostic Mammogram Left W Lexa (02/24/2024 2:22 PM PRESS MACHINE FEEDER) Anatomical Region Laterality Modality Breast Left Mammography 02/24/2024 3:10 PM PRESS MACHINE FEEDER Narrative 02/24/2024 3:13 PM PRESS MACHINE FEEDER EXAM DESCRIPTION: DIAGNOSTIC MAMMOGRAM LEFT W LEXA [...] PM - Electronically signed by Lico Shea M.D. MD: Report ID: [id number] Reading Location: [facility] Vince Jaramillo MD IMG MAMMO PROCEDURES Final [...] suspicious finding in either breast on mammogram. us Self Screening Mammogram IMG MAMMO PROCEDURES Fi nal Result from Last 3 Months or Most Recently Relevant to Health Maintenance [place] [facility] [place] [facility] [place] Care Teams Stage Set Designer Relationship Specialty Start Date End Date Bryce Tripathi MD [facility] [address] [place] [address] PCP - General Internal Medicine 02/06/21
== END 2024-05-04 09:25 | disposition home or self-care (01) ==
PROVIDERS: Emergency Provider Emergency Medicine; PCP Internal Medicine
DX: B34.9 Viral infection, unspecified (principal); Z20.822 Contact with and (suspected) exposure to COVID-19; F17.210 Nicotine dependence, cigarettes, uncomplicated; Z87.442 Personal history of urinary calculi
CPT/HCPCS: 87637; 99283

== ENCOUNTER 2024-05-17 08:38 | Emergency (ER) | payer BC, SELFPAY ==
[2024-05-17 08:58] VITALS: BP 112/68; PULSE 81; RESP 20; TEMP 36.5; O2SAT 100
[2024-05-17] MEDS: ONDANSETRON INJ 4 MG/2 ML VIAL IV PUSH (09:50)
[2024-05-17] MEDS: SODIUM CHLORIDE 0.9% IV 1,000 ML 999 ML IV CONT (09:50)
[2024-05-17 09:52] LABS: Basophils Percent Auto 0.5 % (0.2-1.2); Eosinophils Absolute Auto 0.1 K/mm3 (0-0.3); Eosinophils Percent Auto 1.4 % (0-4.4); Hematocrit 39.6 % (37.0-47.0); Hemoglobin 13.3 g/dL (12.0-15.0); Immature Granulocyte Absolute 0.02 K/mm3 (0.00-0.031); Immature Granulocyte Percent A 0.3 % (0-0.5); Lymphocytes Absolute Auto 1.81 K/mm3 (0.9-3.2); Lymphocytes Percent Auto 28.1 % (18.3-44.2); Mean Corpuscular HGB Conc 33.6 g/dl (32-36); Mean Corpuscular Hemoglobin 31.7 pg (26-34); Mean Corpuscular Volume 94.5 fl (80-100); Mean Platelet Volume 10.3 fl (7.4-10.4); Monocytes Absolute Auto 0.4 K/mm3 (0.1-0.6); Monocytes Percent Auto 6.5 % (2.6-8.5); Neutrophils Absolute Auto 4.1 K/mm3 (1.3-6.7); Neutrophils Percent Auto 63.2 % (45.5-73.1); Platelet Count Result 167 k/mm3 (150-375); Red Blood Count 4.19 M/mm3 (4.2-5.4); Red Cell Distribution Width 11.9 % (11.5-14.5); White Blood Count 6.5 K/mm3 (4.5-10.0)
[2024-05-17 09:57] LABS: Influenza A QL RT-PCR Negative (Negative); Influenza B QL RT-PCR Negative (Negative); RSV RNA, RT-PCR Negative (Negative); SARS-CoV-2 RNA PCR Positive (Negative)
[2024-05-17 09:57] LABS: Add Urine Microscopic? NO; Appearance Urine Clear (Clear); Bilirubin Urine Negative (Negative); Blood Urine Negative (Negative); Color Urine Yellow (Yellow); Glucose Urine UA Negative (Negative); Ketones Urine Negative (Negative); Leukocyte Esterase Ur Negative LEU/UL (Negative); Nitrate Urine Negative (Negative); Protein Urine Negative (Negative); Specific Grav Ur 1.017 (1.001-1.035); Urobilinogen Urine 0.2 mg/dL (<2.0); pH Urine 7.5 (5.0-9.0)
[2024-05-17 10:03] LABS: Alanine Aminotransferase 22 U/L (6-35); Alkaline Phosphatase 65 U/L (38-126); Anion Gap 5 mmol/L (4-12); Aspartate Amino Transferase 26 U/L (14-36); Bilirubin,Total 0.4 mg/dL (0.2-1.3); Blood Urea Nitrogen 12 mg/dL (7-17); Calcium 8.3 mg/dL (8.4-10.2); Carbon Dioxide 27 mmol/L (22-30); Chloride 107 mmol/L (98-107); Estimated CRCL calculation 100 ml/min; Estimated Glomerular Filt Rate > 60; Glucose 84 mg/dL (65-110); Potassium 4.4 mmol/L (3.4-5.0); Sodium 139 mmol/L (137-145)
--- NOTE | 2024-05-17 10:39 | ED.GENADULT ---
HPI - General Adult General Chief complaint: Headache Stated complaint: sore throat, n/v, HERNÁNDEZ Time Seen by Provider: 05/17/24 09:02 History of Present Illness HPI narrative: Patient is a 49-year-old female who presents ER with multitude of complaints. First complaint is sore throat ongoing for last couple days associated with dry cough. She has had some nausea vomiting today as well as throbbing headache. No alleviating factors. Her son at home currently has COVID. No urinary symptoms. Related Data Allergies Allergy/AdvReac Type Severity Reaction Status Date / Time Sulfa (Sulfonamide Allergy Unknown Rash Verified 05/17/24 09:09 Antibiotics) tetracycline AdvReac Severe VOMITING Verified 05/17/24 09:09 doxycycline AdvReac Unknown VOMITING Verified 05/17/24 09:09 hydrocodone AdvReac Unknown NAUSEA Verified 05/17/24 09:09 clindamycin AdvReac Confusion Verified 05/17/24 09:09 Review of Systems Review of Systems: All systems reviewed & are unremarkable except as noted in HPI and below Constitutional: Constitutional: Reports no additional constitutional complaints ENT: Reports system reviewed and no additional complaints, except as documented Cardiovascular: Cardiovascular: Reports no additional cardiovascular complaints Respiratory: Respiratory: Reports no additional respiratory complaints Gastrointestinal: Gastrointestinal: Reports no additional gastrointestinal complaints [facility] Past Medical History Medical History (Updated 05/17/24 @ 10:41 by Kalyan Richmond MD) Right carpal tunnel syndrome Kidney stones Family History Family History Father No problems noted. Mother No problems noted. Sibling No problems noted. Social History Social History Smoking packs per day: 0.5 Smoking cigarettes per day: 10.0 Years smoked: 25 Smoking pack-years: 12.50 Smoking status: Current every day smoker Tobacco type: cigarettes Second hand tobacco smoke exposure: No Alcohol intake: current Alcohol use details: RARE Substance use: current Substance use type: marijuana Other substance usage details: daily Do You Feel Safe in your Home?: Yes Lack of Transportation: No Lack of Food: Never True Current Housing: I Have Housing Concerned About Future Housing: No Difficulty Paying Gas/Electric Bills: No Difficulty Paying for Meds: No Currently Unemployed: No Education: Decline to Answer Difficulty w/ Childcare or Family Care: No Living arrangements: with family 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 HEAD: Normocephalic, atraumatic. CHEST: Clear to auscultation. No respiratory distress. HEART: Regular rate and rhythm. Normal peripheral pulses. ABDOMEN: Soft, nontender, nondistended. EXTREMITIES: Normal range of motion. No edema. SKIN: Warm, dry, no rash. NEURO: Alert and oriented x3. PSYCH: Normal mood and affect. Course Course Emergency Course: Patient hydrated, given antiemetics and appropriate for discharge home. COVID positive. Vital Signs Vital signs: Vital Signs Temperature 97.7 F 05/17/24 08:58 Pulse Rate 81 05/17/24 08:58 Respiratory Rate 20 05/17/24 08:58 Blood Pressure 112/68 05/17/24 08:58 Pulse Oximetry 100 05/17/24 08:58 Oxygen Delivery Room Air 05/17/24 08:58 Temperature 97.7 F 05/17/24 08:58 Pulse Rate 81 05/17/24 08:58 Respiratory Rate 20 05/17/24 08:58 Blood Pressure 112/68 05/17/24 08:58 Pulse Oximetry 100 05/17/24 08:58 Oxygen Delivery Room Air 05/17/24 08:58 Medical Decision Making Vital Signs Vital Signs: Vital Signs Temperature 97.7 F 05/17/24 08:58 Pulse Rate 81 05/17/24 08:58 Respiratory Rate 20 05/17/24 08:58 Blood Pressure 112/68 05/17/24 08:58 Pulse Oximetry 100 05/17/24 08:58 Oxygen Delivery Room Air 05/17/24 08:58 Temperature 97.7 F 05/17/24 08:58 Pulse Rate 81 05/17/24 08:58 Respiratory Rate 20 05/17/24 08:58 Blood Pressure 112/68 05/17/24 08:58 Pulse Oximetry 100 05/17/24 08:58 Oxygen Delivery Room Air 05/17/24 08:58 Lab Data 05/17/24 09:44 05/17/24 09:44 Labs: Lab Results 05/17/24 05/17/24 05/17/24 Range/Units 09:11 09:44 09:49 WBC 6.5 (4.5-10.0) K/mm3 RBC 4.19 L (4.2-5.4) M/mm3 Hgb 13.3 (12.0-15.0) g/dL Hct 39.6 (37.0-47.0) % MCV 94.5 (80-100) fl MCH 31.7 (26-34) pg MCHC 33.6 (32-36) g/dl RDW 11.9 (11.5-14.5) % Plt Count 167 (150-375) k/mm3 MPV 10.3 (7.4-10.4) fl Immature Gran % (Auto) 0.3 (0-0.5) % Neut % (Auto) 63.2 (45.5-73.1) % Lymph % (Auto) 28.1 (18.3-44.2) % [place] % (Auto) 6.5 (2.6-8.5) % Eos % (Auto) 1.4 (0-4.4) % Baso % (Auto) 0.5 (0.2-1.2) % Lymph # (Auto) 1.81 (0.9-3.2) K/mm3 [place] # (Auto) 0.4 (0.1-0.6) K/mm3 Eos # (Auto) 0.1 (0-0.3) K/mm3 Baso # (Auto) 0.0 (0.0-0.1) K/mm3 Abs Immat Gran (auto) 0.02 (0.00-0.031) K/mm3 Absolute Neuts (auto) 4.1 (1.3-6.7) K/mm3 Absolute Nucleated RBC 0.000 (0.0-0.012) K/mm3 Nucleated RBC % 0.0 (0.0-0.2) % Sodium 139 (137-145) mmol/L Potassium 4.4 (3.4-5.0) mmol/L Chloride 107 (98-107) mmol/L Carbon Dioxide 27 (22-30) mmol/L Anion Gap 5 (4-12) mmol/L BUN 12 (7-17) mg/dL Creatinine 0.50 L (0.7-1.0) mg/dL Estim Creat Clear Calc 100 ml/min Estimated GFR > 60 (59 - ) Glucose 84 (65-110) mg/dL Calcium 8.3 L (8.4-10.2) mg/dL Total Bilirubin 0.4 (0.2-1.3) mg/dL AST 26 (14-36) U/L ALT 22 (6-35) U/L Alkaline Phosphatase 65 (38-126) U/L Total Protein 7.0 (6.3-8.2) g/dL Albumin 4.0 (3.5-5.1) g/dL Urine Color Yellow (Yellow) Urine Appearance Clear (Clear) Urine pH 7.5 (5.0-9.0) Ur Specific [place] 1.017 (1.001-1.035) Urine Protein Negative (Negative) mg/dL Urine Glucose (UA) Negative (Negative) mg/dL Urine Ketones Negative (Negative) mg/dL Ur Blood (Man) Negative (Negative) Urine Nitrate Negative (Negative) Urine Bilirubin Negative (Negative) Urine Urobilinogen 0.2 (<2.0) mg/dL Leukocyte Esterase Rfl Negative (Negative) KENYA/UL Influenza A (RT-PCR) Negative (Negative) Influenza B (RT-PCR) Negative (Negative) RSV (RT-PCR) Negative (Negative) SARS-CoV-2 RNA (RT-PCR) Positive A (Negative) Discharge Plan Discharge Clinical Impression: COVID Patient Disposition: Home, Self-Care Condition: Stable Instructions: COVID-19 (Coronavirus Disease 2019) (ED) Additional Instructions: As discussed you have a viral illness. Unfortunately there are no specific medications we can give you to make the illness end faster. Antibiotics do not work for viral illnesses. However, you can take Acetaminophen or Ibuprofen to help with fevers and pain. Stay well hydrated and rested. Return to the emergency department if your fevers and chills continue to worse after 5 days, if you develop worsening cough with thick sputum, or are unable to stay hydrated. Contact your primary care provider in the next few days for a re-evaluation and to make sure your symptoms are improving. Patient Language: Kyrgyz Prescriptions: No Action tramadol 50 mg tablet 50 mg PO Q6H PRN (Reason: pain) Qty: 20 0RF cyclobenzaprine 10 mg tablet 10 mg PO TID PRN (Reason: muscle spasm) Qty: 14 0RF lidocaine 5 % adhesive patch,medicated 1 patch topical DAILY Qty: 15 0RF Rx Instructions: leave on most painful area for up to 12 hrs. do not use more than 1 patch in a 24-hour period. Follow-up/Referrals: Deuce,MD Jackson ([place]) [Primary Care Provider] - 1 Week
[2024-05-17 10:49] VITALS: BP 102/54; PULSE 74; RESP 20; O2SAT 100
== END 2024-05-17 10:50 | disposition home or self-care (01) ==
PROVIDERS: Emergency Provider Emergency Medicine; PCP Internal Medicine
DX: U07.1 COVID-19 (principal); F17.210 Nicotine dependence, cigarettes, uncomplicated; Z87.442 Personal history of urinary calculi
CPT/HCPCS: 36415; 80053; 81003; 85025; 87637; 96361; 96374; 99284; J2405; J7030